=== PATIENT | female | born 1995 | race Caucasian/White ===

== ENCOUNTER 2019-10-22 15:39 | Emergency (ER) | payer OTHER, SELFPAY ==
[2019-10-22 16:02] VITALS: BP 111/66; PULSE 97; RESP 16; TEMP 36.6; O2SAT 98
--- NOTE | 2019-10-22 16:41 | ED.GENADULT ---
HPI - General Adult General Chief complaint: Headache Stated complaint: headache/nausea Time Seen by Provider: 10/22/19 16:41 Source: patient and RN notes reviewed Mode of arrival: ambulatory Limitations: no limitations History of Present Illness HPI narrative: 23-year-old female complains of headache with aura of nausea and intermittent dizziness (none at this time) for 1 day. Tylenol with no relief. No neck stiffness. No fever or chills. No URI symptoms. Gradual onset started Wednesday10/21/19 upon awakening per Rosa. Not the Worst headache of her life. No head injury. Feels like almost a similar episode she had previously but not as bad per Rosa. Previous episode treated in the emergency room with medications and intravenous fluids. Denies vision change, confusion, or seizure activity. Rosa denies being , LMP 10/05/19. Remains active. Denies weakness, fatigue, myalgia, or facial swelling. Denies chest pain or dyspnea. Denies cough, rhinorrhea, congestion, sore throat, nausea, vomiting, abdominal pain, and diarrhea. Tolerating po intake well. Denies recent traveling. Denies concerns for COVID-19 or exposures been home since [id number] order except for essential household needs, working, and return home. Some parts of this dictation were generated by voice recognition software and may contain typographical and/or grammatical inaccuracies. Related Data Allergies Allergy/AdvReac Type Severity Reaction Status Date / Time codeine Allergy Mild Vomiting Unverified 11/03/15 09:30 Wasp Allergy Unknown Uncoded 11/03/15 09:30 Review of Systems Review of Systems: Narrative: CONSTITUTIONAL: Denies fever, chills, sweats. EYES: Denies visual changes, redness, discharge. ENT: Denies rhinorrhea, congestion, sore throat, otalgia. CARDIOVASCULAR: Denies chest pain, palpitations, edema. RESPIRATORY: Denies dyspnea, wheezing, cough. GASTROINTESTINAL: Denies abdominal pain, vomiting or diarrhea. Complains of nausea. GENITOURINARY: Denies dysuria, hematuria, abnormal discharge. SKIN: Denies rash or itching. MUSCULOSKELETAL: Denies acute back pain, joint pain, or myalgia. NEUROLOGIC: Denies numbness, or focal weakness. Complaints of headache and intermittent dizziness. PSYCHIATRIC: Denies anxiety or depression. All systems reviewed & are unremarkable except as noted in HPI and below. [facility] Past Medical History Medical History (Updated 10/23/19 @ 00:00 by Steve Avalos) Asthma Depression with anxiety No pertinent family history Wrist fracture, left Surgical History Surgical History (Updated 10/22/19 @ 17:18 by ELISABET Diamond) History of surgery on left wrist Family History Family History (Updated 10/22/19 @ 17:19 by ELISABET Diamond) Father Alive and well Mother Alive and well Social History Social History (Updated 10/22/19 @ 17:20 by ELISABET Diamond) Smoking status: Never smoker Second hand tobacco smoke exposure: No Alcohol intake: current Substance use: never Living arrangements: with family Occupation/Education: occupation Gender identity (if verbalized by the patient): Female Comments At time of signature, agree with nurse past medical, surgical, social, and family history. There is no relevant family history pertinent to the presenting complaint. Exam Narrative: Exam Narrative: GENERAL: This is a well-nourished, well-developed patient, in no apparent distress. Talks in full sentences, no language deficiencies and ambulates with steady gait without dyspnea. HEAD: normocephalic, atraumatic. EYES: PERRL. Sclera clear/white. Vision is grossly intact. EOMI, no nystagmus noted. EARS: External ears normal, auditory canals clear and without drainage, TMs normal without perforation. Hearing grossly intact. NOSE: External nose normal with no obvious nasal discharge, nares without redness, no rhinorrhea. THROAT: Mucous membranes moist, posterior pharynx
== END 2019-10-22 17:00 | disposition home or self-care (01) ==
PROVIDERS: Emergency Provider Nurse Practitioner Family; PCP Family Medicine
DX: R51 Headache (principal); J45.909 Unspecified asthma, uncomplicated
CPT/HCPCS: 99213; G0463

== ENCOUNTER 2020-03-05 09:34 | Outpatient (CLI) | payer OTHER, SELFPAY ==
--- NOTE | ~2020-03-05 | US_ITS ---
EXAMINATION: US OB <=14 wk fetus w TV DATE: 03/05/2020 10:29 INDICATION: Pelvic pain. Comparison:No prior studies for comparison. TECHNIQUE: Multiple transabdominal and endovaginal sonographic images of the pelvis performed. FINDINGS: The uterus measures 8.5 x 6.9 x 5.1 cm. The endometrial complex measures 1.4 cm. No evidenc e for intrauterine gestational sac or pole. The right ovary measures 1.9 x 2.6 x 2.1 cm and the left ovary measures 3 x 2 x 1.8 cm. There are sm all follicles in each ovary. There is trace free fluid in the pelvis. There are no abnormal masses seen on either side. IMPRESSION: 1. Mild endometrial thickening. No intrauterine gestational sac or pole. Differential diagnosis includes very early intrauterine , failed and ectopic . Recommend follow -up with serial quantitative beta-hCG levels and ultrasound as clinically warranted. Reviewed, dictated and finalized at location B. IMPRESSION: 1. Mild endometrial thickening. No intrauterine gestational sac or pole. Differential diagnosis includes very early intrauterine , failed pregn margot and ectopic . Recommend follow-up with serial quantitative beta-h CG levels and ultrasound as clinically warranted.
== END 2020-03-05 09:35 | disposition home or self-care (01) ==
LOC: ANHIMG 09:42
PROVIDERS: PCP Family Medicine; Visit Provider Obstetrics & Gynecology
DX: O75.89 Other specified complications of labor and delivery (principal)
CPT/HCPCS: 76801; 76817

== ENCOUNTER 2020-04-24 12:59 | Emergency (ER) | payer OTHER, SELFPAY ==
--- NOTE | ~2020-04-24 | XR_ITS ---
EXAMINATION: XR foot LT min 3V DATE: 04/24/2020 13:29 INDICATION: Pain at the left first metatarsal post trauma TECHNIQUE: Dorsoplantar, two oblique and lateral views of the left foot were obtained. COMPARISON: None. FINDINGS: Alignment is normal. No fracture. Joint spaces are normal. Soft tissues are unremarkable. IMPRESSION: 1. Negative left foot radiographs. Reviewed, dictated and finalized at location A. 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
--- NOTE | 2020-04-24 13:08 | ED.GENADULT ---
HPI - General Adult General Chief complaint: Extremity Injury, Lower Stated complaint: L/foot pain Time Seen by Provider: 04/24/20 13:08 Source: patient and RN notes reviewed Mode of arrival: ambulatory Limitations: no limitations History of Present Illness HPI narrative: 24-year-old female presents with complaints of left foot pain for the past 3 weeks. Rosa says 3 weeks ago she ran a uniform cart over the top of left foot at work. Then last night while going down the steps she lost her balance left foot went upward and now has increased pain at bottom of foot. Tylenol 2 tablets (last on 04/23/20 @22:30) without relief. Hurts to bear weight. No radiation of pain. No swelling, numbness, tingling, or loss of mobility. Exacerbating factor applying weight. Denies inability to bear weight. Denies discoloration. Denies suspect foreign body. Denies fever or chills. The patient reports she have not been diagnosed with COVID-19. The patient reports she is not waiting for the results of a COVID-19 lab test. The patient reports she do not have fever, chills, weakness, or fatigue. The patient reports she do not have a new or worsening cough or shortness of breath. Denies chest pain. The patient reports she do not have any rhinorrhea, congestion, sore throat, loss of taste, nausea, vomiting, abdominal pain, and diarrhea. Tolerating po intake well. Denies recent traveling. Denies concerns for COVID-19 or exposures been home with limited outdoor exposure except for essential household needs, work, and return home. At this time, patient is not suspected of having COVID-19. Some parts of this dictation were generated by voice recognition software and may contain typographical and/or grammatical inaccuracies. Related Data Home Medications Medication Instructions Recorded Confirmed phentermine 15 mg PO DAILY 04/26/20 04/26/20 sertraline 50 mg PO DAILY 04/26/20 04/26/20 Allergies Allergy/AdvReac Type Severity Reaction Status Date / Time codeine Allergy Mild Vomiting Verified 04/26/20 13:14 Wasp Allergy Unknown Swelling Uncoded 04/24/20 13:02 Review of Systems Review of Systems: Narrative: CONSTITUTIONAL: Denies fever, chills, sweats. EYES: Denies visual changes, redness, discharge. ENT: Denies rhinorrhea, congestion, sore throat, otalgia. CARDIOVASCULAR: Denies chest pain, palpitations, edema. RESPIRATORY: Denies dyspnea, wheezing, cough. GASTROINTESTINAL: Denies abdominal pain, nausea, vomiting, diarrhea. SKIN: Denies rash or itching. MUSCULOSKELETAL: Denies acute back pain or myalgia. Complains of to left foot. NEUROLOGIC: Denies numbness or focal weakness. PSYCHIATRIC: Denies anxiety or depression. All other systems reviewed are negative, except as documented in HPI and below. [facility] Past Medical History Medical History Asthma Depression with anxiety No pertinent family history Wrist fracture, left Surgical History Surgical History History of surgery on left wrist Family History Family History Father Alive and well Mother Alive and well Social History Social History Smoking status: Never smoker Tobacco type: cigarettes Second hand tobacco smoke exposure: No Alcohol intake: current Substance use: never Gender identity (if verbalized by the patient): Female Comments At time of signature, agree with nurse past medical, surgical, social, and family history. There is no relevant family history pertinent to the presenting complaint. Exam Narrative: Exam Narrative: GENERAL: This is a well-nourished, well-developed patient, in no apparent distress. Ambulates with a limp favoring left lower extremity. HEAD: normocephalic, atraumatic. EYES: PERRL. Sclera clear/white.
[2020-04-24 13:09] VITALS: BP 145/85; PULSE 90; RESP 20; TEMP 36.9; O2SAT 100
== END 2020-04-24 13:44 | disposition home or self-care (01) ==
PROVIDERS: Emergency Provider Nurse Practitioner Family; PCP Family Medicine
DX: S93.602A Unspecified sprain of left foot, initial encounter (principal); W10.9XXA Fall (on) (from) unspecified stairs and steps, initial encounter; S90.32XA Contusion of left foot, initial encounter; J45.909 Unspecified asthma, uncomplicated; F41.9 Anxiety disorder, unspecified; F32.9 Major depressive disorder, single episode, unspecified
CPT/HCPCS: 73630; 81025; 99213; G0463

== ENCOUNTER 2020-04-26 13:00 | Emergency (ER) | payer OTHER, SELFPAY ==
--- NOTE | ~2020-04-26 | XR_ITS ---
EXAMINATION: XR foot LT min 3V DATE: 04/26/2020 13:27 INDICATION: Trauma with pain at the left first metatarsal TECHNIQUE: Dorsoplantar, two oblique and lateral views of the left foot were obtained. COMPARISON: 04/24/2020 FINDINGS: Alignment is normal. No fracture. Joint spaces are normal. Soft tissues are unremarkable. IMPRESSION: 1. Negative left foot radiographs. Reviewed, dictated and finalized at location A. [employer] ADVANCED
[2020-04-26 13:11] VITALS: BP 134/95; PULSE 81; RESP 16; TEMP 36.8; O2SAT 100
--- NOTE | 2020-04-26 13:11 | ED.GENADULT ---
HPI - General Adult General Chief complaint: Extremity Injury, Lower Stated complaint: left foot injury Time Seen by Provider: 04/26/20 13:17 Source: patient and RN notes reviewed Limitations: no limitations History of Present Illness HPI narrative: 24-year-old female presents with complaints of left foot pain and swelling for 1 day. Rosa was here on April 24, 2020 and treated for left foot pain due to several injuries (cart rolled over foot and missed a stepped while going down stairs), had a negative x-ray. Walking in kitchen (tennis shoes on) felt a pop and noted swelling in her left foot on 04/25/2020. Tylenol extra strength (last 08:30 AM today) without relief. Hurts to bear weight. No radiation of pain. No numbness, tingling, or loss of mobility. Exacerbating factor applying weight. Denies inability to bear weight. Denies discoloration. Denies suspect foreign body. The patient reports she have not been diagnosed with COVID-19. The patient reports she is not waiting for the results of a COVID-19 lab test. The patient reports she do not have fever, chills, weakness, or fatigue. The patient reports she do not have a new or worsening cough or shortness of breath. Denies chest pain. The patient reports she do not have any rhinorrhea, congestion, sore throat, loss of taste, nausea, vomiting, abdominal pain, and diarrhea. Tolerating po intake well. Denies recent traveling. Denies concerns for COVID-19 or exposures been home with limited outdoor exposure except for essential household needs, work, and return home. At this time, patient is not suspected of having COVID-19. Some parts of this dictation were generated by voice recognition software and may contain typographical and/or grammatical inaccuracies. Related Data Home Medications Medication Instructions Recorded Confirmed phentermine 15 mg PO DAILY 04/26/20 04/26/20 sertraline 50 mg PO DAILY 04/26/20 04/26/20 Allergies Allergy/AdvReac Type Severity Reaction Status Date / Time codeine Allergy Mild Vomiting Verified 04/26/20 13:14 Wasp Allergy Unknown Swelling Uncoded 04/24/20 13:02 Review of Systems Review of Systems: Narrative: CONSTITUTIONAL: Denies fever, chills, sweats. EYES: Denies visual changes, redness, discharge. ENT: Denies rhinorrhea, congestion, sore throat, otalgia. CARDIOVASCULAR: Denies chest pain, palpitations, edema. RESPIRATORY: Denies dyspnea, wheezing, cough. GASTROINTESTINAL: Denies abdominal pain, nausea, vomiting, diarrhea. SKIN: Denies rash or itching. MUSCULOSKELETAL: Denies acute back pain or myalgia. Complains of pain and swelling to left foot. NEUROLOGIC: Denies numbness or focal weakness. PSYCHIATRIC: Denies anxiety or depression. All other systems reviewed are negative, except as documented in HPI and below. [facility] Past Medical History Medical History Asthma Depression with anxiety No pertinent family history Wrist fracture, left Surgical History Surgical History History of surgery on left wrist Family History Family History Father Alive and well Mother Alive and well Social History Social History Smoking status: Never smoker Tobacco type: cigarettes Second hand tobacco smoke exposure: No Alcohol intake: current Substance use: never Gender identity (if verbalized by the patient): Female Comments At time of signature, agree with nurse past medical, surgical, social, and family history. There is no relevant family history pertinent to the presenting complaint. Exam Narrative: Exam Narrative: GENERAL: This is a well-nourished, well-developed patient, in no apparent distress. Talks in full sentences and ambulates with LT antalgic gait without dyspnea. HEAD: normoceph
== END 2020-04-26 13:49 | disposition home or self-care (01) ==
PROVIDERS: Emergency Provider Nurse Practitioner Family; PCP Family Medicine
DX: S93.602D Unspecified sprain of left foot, subsequent encounter (principal); X58.XXXD Exposure to other specified factors, subsequent encounter; J45.909 Unspecified asthma, uncomplicated; F32.9 Major depressive disorder, single episode, unspecified; F41.9 Anxiety disorder, unspecified
CPT/HCPCS: 73630; 99213; G0463

== ENCOUNTER 2020-07-01 10:08 | Emergency (ER) | payer OTHER, MEDICAID, SELFPAY ==
--- NOTE | ~2020-07-01 | XR_ITS ---
EXAMINATION: XR abdomen/kub 1V EXAM DATE: 07/01/2020 10:48 INDICATION: Change in bowel habits/pain right lower quadrant. TECHNIQUE: Frontal projection(s) of the abdomen for interpretation. There is no prior study for cirilo villavicencio. FINDINGS: There is expected amount of colonic stool and gas. No small bowel dilation, nonobstructiv e bowel gas pattern. There are no suspicious calcifications identified. There is no organomegaly suspected. The bones are unremarkable. IMPRESSION: Unremarkable abdomen x-ray exam. Reviewed, dictated and finalized at location B. EHOLD MANAGER
[2020-07-01 10:20] VITALS: BP 135/94; PULSE 81; RESP 18; TEMP 36.7; O2SAT 100
--- NOTE | 2020-07-01 10:20 | ED.ABDPAIN ---
HPI - Abdominal Pain General Chief Complaint: Abdominal Pain Stated Complaint: stomach pain Time Seen by Provider: 07/01/20 10:25 Source: patient and RN notes reviewed Mode of arrival: ambulatory Limitations: no limitations History of Present Illness HPI narrative: 24-year-old female presents with concern for umbilical abdominal discomfort, more frequent stools, change in the shape of her stools. Reports at baseline she has slight constipation, has a bowel movement every 3 days approximately. Reports in the last week she is having more frequent, solid bowel movements, urgent need to have a bowel movement. She denies any pain with defecation, any blood in her stool or when wiping. She denies any vomiting, diarrhea, fever. Reports mild amount of anal itching today. Reports her last menstrual period ended on June 25. Reports 2 vaginal births, the last one was 3 years ago, denies any hemorrhoids with those births. MD elicited complaint: other (Change in bowel habits) Related Data Home Medications Medication Instructions Recorded Confirmed No Home Medications 07/01/20 07/01/20 Allergies Allergy/AdvReac Type Severity Reaction Status Date / Time codeine Allergy Unknown Verified 07/01/20 10:27 Review of Systems Review of Systems: Narrative: CONSTITUTIONAL: Denies malaise, chills, sweats, or fever. CARDIOVASCULAR: Denies chest pain, palpitations, or edema. RESPIRATORY: Denies cough or dyspnea. GASTROINTESTINAL: Reports umbilical abdominal discomfort, change in bowel habits, more frequent stools, change in shape of stools. Denies nausea, vomiting, diarrhea, bloody, or mucous stools. GENITOURINARY: Denies dysuria or hematuria. SKIN: Reports anal itching MUSCULOSKELETAL: Reports mild low back pain. Denies myalgia. NEUROLOGIC: Denies numbness, weakness All systems reviewed & are unremarkable except as noted in HPI and below PMFSH Social History Social History Gender identity (if verbalized by the patient): Female Comments At time of signature, agree with nursing past medical, surgical, social and family history. There is no relevant family history pertinent to the presenting complaint Exam Narrative: Exam Narrative: GENERAL: Well-appearing, well-nourished, and in no acute distress. HEAD: Normocephalic, atraumatic. EYES: PERRLA, conjunctivae clear ENT: Mucous membranes moist. NECK: Supple. No lymphadenopathy CHEST: Speaks in full sentences. No respiratory distress. HEART: Regular rate and rhythm. ABDOMEN: Soft, flat, nondistended. No guarding, rebound tenderness, or rigid. No pulsatilla masses. Bowel sounds present in all four quadrants. No organomegaly. Negative Mckenzie?s sign. Mild periumbilical tenderness to deep palpation. No Supra public tenderness or distension. SKIN: Warm, dry, no rash. NEURO: Alert and oriented x3. PSYCH: Normal mood and affect GI: Rectal Exam: visual inspection normal and normal sphincter tone Other: no visible or palpable internal or external hemorrhoids Course Course Emergency Course: Patient is aware of, understands and agrees to treatment plan. Anticipatory guidance given. Patient agrees to follow-up as directed and is aware of reasons to seek care at the emergency department. Portions of this record may have been created with voice recognition software Vital Signs Vital signs: Reviewed. MDM - Abdominal Pain MDM Narrative Medical decision making narrative: Discussed limited diagnostic capability at the [facility]. Patient understands, reports she will make an appointment with her primary care doctor for further evaluation, understands reasons to go to the emergency room. Patient has no history of peptic ulcer, H. pylori, chronic aspirin NSAID or corticosteroid use, chronic alcohol use, no history of inflammatory bowel disease, no history of active abdominal infection or malignancy. Patient has no history of hernia or intra-abdominal surgeries, patient denies absence of flatu
== END 2020-07-01 11:10 | disposition home or self-care (01) ==
PROVIDERS: Emergency Provider Nurse Practitioner; PCP Family Medicine
DX: R19.4 Change in bowel habit (principal)
CPT/HCPCS: 74018; 99203; G0463

== ENCOUNTER → 2020-08-15 14:37 | Outpatient (CLI) | payer OTHER, SELFPAY ==
--- NOTE | ~2020-08-15 | CT_ITS ---
EXAMINATION: CT brain wo con DATE: 08/15/2020 15:01 INDICATION: Concussion. Headaches. Dizziness. TECHNIQUE: Computed tomography (CT) of the head was performed without intravenous contrast. The mA wa s adjusted according to patient size. Iterative reconstruction technique was employed. Exam dose: 59 9.57 mGy-cm total exam DLP. COMPARISON: None FINDINGS: No intracranial mass lesion or hemorrhage or cerebrovascular accident. No midline shift or mass effect. Normal ventricular size. Normal richardson-white matter differentiation. No subdural or epidur al hematoma. No fracture or bone destruction of the cranial vault The mastoid air cells and included paranasal sinuses are normally developed and aerated. No fracture or bone destruction of the cranial vault. IMPRESSION: Negative Reviewed, dictated and finalized at Location A. Reviewed, dictated and finalized at location A. 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
== END ==
PROVIDERS: Visit Provider Registered Nurse
DX: S06.0X0A Concussion without loss of consciousness, initial encounter (principal)
CPT/HCPCS: 70450

== ENCOUNTER 2020-08-28 06:45 | Emergency (ER) | payer OTHER, MEDICAID, SELFPAY ==
--- NOTE | ~2020-08-28 | XR_ITS ---
EXAMINATION: XR hand RT min 3V INDICATION: Right hand pain TECHNIQUE: Three views of the right hand are obtained. COMPARISON: None available FINDINGS: There is no fracture, dislocation, or subluxation. The bones and joint spaces are normal. T here is mild soft tissue swelling of the fifth finger. IMPRESSION: 1. No acute osseous abnormality. Reviewed, dictated and finalized at location A. 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
[2020-08-28 06:49] VITALS: BP 141/82; PULSE 87; RESP 16; TEMP 36.3; O2SAT 100
--- NOTE | 2020-08-28 07:41 | ED.GENADULT ---
HPI - General Adult General Chief complaint: Extremity Injury, Upper Stated complaint: right hand injury Time Seen by Provider: 08/28/20 06:54 History of Present Illness HPI narrative: Patient is a 24-year-old female who presents ER with right hand injury. Patient tripped and fell on outstretched hand this morning. She caught herself on the right side. She had sudden onset pain in her wrist near the base of the fifth metacarpal. About 30 minutes later she began having some numbness into her hand. She has discomfort when touching her fifth digit to her first digit. She maintains range of motion in the wrist and hand. Patient reports she was trying to wipe herself after using the restroom and caused significant pain for her. Related Data Allergies Allergy/AdvReac Type Severity Reaction Status Date / Time codeine Allergy Unknown Verified 07/01/20 10:27 Review of Systems Musculoskeletal: Musculoskeletal: Reports arthralgias, Denies joint swelling and Denies muscle cramps Integumentary/Breasts: Skin/Breast: Denies erythema and Denies rash Comments: No bruising Neurologic: Denies focal weakness and Reports numbness PMFSH Past Medical History Medical History (Updated 08/28/20 @ 07:45 by Demarco Merlos MD) Healthy female adult Surgical History Surgical History (Updated 08/28/20 @ 07:42 by Demarco Merlos MD) No pertinent past surgical history Social History Social History Gender identity (if verbalized by the patient): Female Exam Narrative: Exam Narrative: GENERAL: Well-appearing, well-nourished, and in no acute distress. HEAD: Normocephalic, atraumatic. EXTREMITIES: Focused exam of the right upper extremity reveals full range of motion elbow and wrist and fingers with normal strength. Tender to palpation over the dorsal aspect of the hand/wrist at the base of the fifth metacarpal. No swelling or bruising noted. Decreased sharp touch to the palmar and dorsal aspects of the hand. SKIN: Warm, dry, no rash. NEURO: Alert and oriented x3. PSYCH: Normal mood and affect. Course Course Emergency Course: Patient informed of x-ray results. Recommend wrist splint that can be purchased at [employer] for immobilization as well as anti-inflammatory medications. Feel patient has suffered a wrist sprain and swelling could be causing some paresthesia/anesthesia. Recommend follow-up with PCP as she may require MRI should symptoms persist. Patient verbalized understanding. Discharge home. Vital Signs Vital signs: Vital Signs Temperature 97.3 F L 08/28/20 06:49 Pulse Rate 87 08/28/20 06:49 Respiratory Rate 16 08/28/20 06:49 Blood Pressure 141/82 H 08/28/20 06:49 Pulse Oximetry 100 08/28/20 06:49 Temperature 97.3 F L 08/28/20 06:49 Pulse Rate 87 08/28/20 06:49 Respiratory Rate 16 08/28/20 06:49 Blood Pressure 141/82 H 08/28/20 06:49 Pulse Oximetry 100 08/28/20 06:49 Medical Decision Making Vital Signs Vital Signs: Vital Signs Temperature 97.3 F L 08/28/20 06:49 Pulse Rate 87 08/28/20 06:49 Respiratory Rate 16 08/28/20 06:49 Blood Pressure 141/82 H 08/28/20 06:49 Pulse Oximetry 100 08/28/20 06:49 Temperature 97.3 F L 08/28/20 06:49 Pulse Rate 87 08/28/20 06:49 Respiratory Rate 16 08/28/20 06:49 Blood Pressure 141/82 H 08/28/20 06:49 Pulse Oximetry 100 08/28/20 06:49 Imaging Data Radiologist's impression: ITS Impressions Hand X-Ray 08/28/20 07:09 IMPRESSION: 1. No acute osseous abnormality. Discharge Plan Discharge Clinical Impression: Sprain and strain of wrist Patient Disposition: Home, Self-Care Condition: Stable Instructions: Wrist Sprain (ED) Additional Instructions: Return to the ER if you suffer additional injury, you have new weakness in your hand, or you have additional concerns. If your numbness persist you may require an MRI that can be ordered by your primary care physician. Nicholas
== END 2020-08-28 08:00 | disposition home or self-care (01) ==
PROVIDERS: Emergency Provider Emergency Medicine; PCP Family Medicine
DX: S63.501A Unspecified sprain of right wrist, initial encounter (principal); W01.0XXA Fall on same level from slipping, tripping and stumbling without subsequent striking against object, initial encounter
CPT/HCPCS: 73130; 99283

== ENCOUNTER 2021-01-08 08:53 | Observation (INO) | payer OTHER, SELFPAY ==
[2021-01-08 09:44] LABS: Add Urine Microscopic? YES; Appearance Urine Cloudy (Clear); Bacteria Urine Trace /hpf; Bilirubin Urine Negative (Negative); Blood Urine 1+ (Negative); Color Urine Yellow (Yellow); Glucose Urine UA Negative (Negative); Ketones Urine Negative (Negative); Leukocyte Esterase Ur 3+ LEU/UL (Negative); Mucus Urine Rare /lpf; Nitrate Urine Negative (Negative); Protein Urine Negative (Negative); RBC Urine 21-50 /hpf (0-2); Squamous Epithelial Cell Urine Many /hpf (Few); Urobilinogen Urine Negative mg/dL (<2.0); WBC Urine 31-50 /hpf
[2021-01-08 09:49] LABS: Specific Grav Ur 1.004 (1.001-1.035)
--- NOTE | 2021-01-08 10:31 | PC.NURSE ---
1020- called,read UA results and informed pt came in stating she has had diarrhea since Wednesday and had a couple episodes of vomiting on Wednesday that has resolved. Pt states she had some mild lower abdominal cramping last night and felt weak today so she came in to get evaluated. Orders received for LR bolus of 500cc then run at 125/hr, if pt feels better after the liter of fluid she can be discharged home.
--- NOTE | 2021-01-08 10:46 | PC.NURSE ---
1041- called back, pt does not want an IV and states she wants to go to work and will sit at her desk and drink water to stay hydrated. Order received to discharge pt home.
--- NOTE | 2021-01-08 10:48 | OBADM ---
This patient, Rosa Acuna, admitted to the OB room OB Post 117 for observation. Patient/family oriented to hospital policies and general routines including ID bracelet, bed and alarms, visiting hours, pain management, procedures, bathroom and other care routines, personal items, smoking policy, room service/diet, and visiting hours. Patient/Family are encouraged to report perceived risks to care and to ask questions if they do not understand what they are told or what they should do.
[2021-01-08 11:18] VITALS: BMI 31.1
--- NOTE | 2021-01-09 10:40 | P.PNOB_ITS ---
OB - Triage/Final Diagnosis Visit Information Comments/Additional reasons for admission: I have assessed the risk for this patient, Rosa Acuna, and determined that she would benefit from observation care. Evaluation Laboratory results: Laboratory Tests 01/08/21 09:23 Urine Color Yellow Urine Appearance Cloudy H Urine pH 7.0 Ur Specific [place] 1.004 Urine Protein Negative Urine Glucose (UA) Negative Urine Ketones Negative Ur Blood (Man) 1+ H Urine Nitrate Negative Urine Bilirubin Negative Urine Urobilinogen Negative Leukocyte Esterase Rfl 3+ H Urine RBC 21-50 H Urine WBC 31-50 H Ur Squamous Epith Cells Many H Urine Bacteria Trace Urine Mucus Rare Final Diagnosis (1) Gastroenteritis: Code(s): K52.9 - Noninfective gastroenteritis and colitis, unspecified Status: Acute
== END 2021-01-08 10:55 | disposition home or self-care (01) ==
PROVIDERS: Admitting Provider Obstetrics & Gynecology; PCP Family Medicine; Visit Provider Obstetrics & Gynecology
DX: O26.892 Other specified pregnancy related conditions, second trimester (principal); K52.9 Noninfective gastroenteritis and colitis, unspecified; Z3A.00 Weeks of gestation of pregnancy not specified
CPT/HCPCS: 81001; 87086; G0378; G0379

== ENCOUNTER 2021-01-28 09:45 | Observation (INO) | payer OTHER, SELFPAY ==
--- NOTE | 2021-01-28 09:45 | OBADM ---
This patient, Rosa Acuna, admitted to the OB room OB Post 115 for observation. Patient/family oriented to hospital policies and general routines including ID bracelet, bed and alarms, visiting hours, pain management, procedures, bathroom and other care routines, personal items, smoking policy, room service/diet, and visiting hours. Patient/Family are encouraged to report perceived risks to care and to ask questions if they do not understand what they are told or what they should do.
[2021-01-28 10:08] VITALS: BP 124/74; PULSE 95
[2021-01-28 10:10] VITALS: BMI 31.8
[2021-01-28 10:16] VITALS: BP 123/74; PULSE 96
[2021-01-28 10:36] LABS: Add Urine Microscopic? NO; Appearance Urine Clear (Clear); Bilirubin Urine Negative (Negative); Blood Urine Negative (Negative); Color Urine Straw (Yellow); Glucose Urine UA Negative (Negative); Ketones Urine Negative (Negative); Leukocyte Esterase Ur Negative LEU/UL (NEGATIVE); Nitrate Urine Negative (Negative); Protein Urine Negative (Negative); Specific Grav Ur 1.009 (1.001-1.035); Urobilinogen Urine Negative mg/dL (<2.0)
[2021-01-28 11:00] VITALS: TEMP 36.2
--- NOTE | 2021-02-06 13:57 | P.PNOB_ITS ---
OB - Triage/Final Diagnosis Visit Information Reason for evaluation: threatened labor Comments/Additional reasons for admission: I have assessed the risk for this patient, Rosa Acuna, and determined that she would benefit from observation care. Evaluation Laboratory results: Laboratory Tests 01/28/21 10:25 Urine Color Straw Urine Appearance Clear Urine pH 7.0 Ur Specific [place] 1.009 Urine Protein Negative Urine Glucose (UA) Negative Urine Ketones Negative Ur Blood (Man) Negative Urine Nitrate Negative Urine Bilirubin Negative Urine Urobilinogen Negative Ur Leukocyte Esterase Negative
== END 2021-01-28 11:52 | disposition home or self-care (01) ==
PROVIDERS: Admitting Provider Obstetrics & Gynecology; PCP Family Medicine; Visit Provider Obstetrics & Gynecology
DX: O47.9 False labor, unspecified (principal); Z3A.00 Weeks of gestation of pregnancy not specified
CPT/HCPCS: 81003; 87077; 87086; 87088; G0378; G0379

== ENCOUNTER 2021-04-03 13:10 | Observation (INO) | payer OTHER, SELFPAY ==
--- NOTE | 2021-04-03 13:35 | OBADM ---
This patient, Rosa Shin, admitted to the OB room OB Post 117 for observation. Patient/family oriented to hospital policies and general routines including ID bracelet, bed and alarms, visiting hours, pain management, procedures, bathroom and other care routines, personal items, smoking policy, room service/diet, and visiting hours. Patient/Family are encouraged to report perceived risks to care and to ask questions if they do not understand what they are told or what they should do.
[2021-04-03 13:46] VITALS: BP 121/79; PULSE 93
[2021-04-03 14:01] VITALS: BP 115/79; PULSE 87
[2021-04-03 14:06] LABS: Add Urine Microscopic? YES; Appearance Urine Clear (Clear); Bilirubin Urine Negative (Negative); Blood Urine Negative (Negative); Color Urine Yellow (Yellow); Glucose Urine UA Negative (Negative); Ketones Urine Negative (Negative); Leukocyte Esterase Ur Trace LEU/UL (NEGATIVE); Nitrate Urine Negative (Negative); Protein Urine Negative (Negative); RBC Urine 0-2 /hpf (0-2); Specific Grav Ur 1.012 (1.001-1.035); Squamous Epithelial Cell Urine Occasional /hpf (Few); Urobilinogen Urine Negative mg/dL (<2.0); WBC Urine 0-3 /hpf (0-3)
[2021-04-03 14:16] VITALS: BP 116/75; PULSE 87
[2021-04-03 14:31] VITALS: BP 112/72; PULSE 90
[2021-04-03 14:46] VITALS: BP 125/79; PULSE 96
[2021-04-03 15:01] VITALS: BP 119/75; PULSE 87
--- NOTE | 2021-04-04 06:59 | P.PNOB_ITS ---
OB - Triage/Final Diagnosis Visit Information Comments/Additional reasons for admission: I have assessed the risk for this patient, Rosa Shin, and determined that she would benefit from observation care. Evaluation Laboratory results: Laboratory Tests 04/03/21 13:47 Urine Color Yellow Urine Appearance Clear Urine pH 7.0 Ur Specific [place] 1.012 Urine Protein Negative Urine Glucose (UA) Negative Urine Ketones Negative Ur Blood (Man) Negative Urine Nitrate Negative Urine Bilirubin Negative Urine Urobilinogen Negative Ur Leukocyte Esterase Trace H Urine RBC 0-2 Urine WBC 0-3 Ur Squamous Epith Cells Occasional Final Diagnosis (1) Back pain affecting : Code(s): O99.891 - Other specified diseases and conditions complicating ; M54.9 - Dorsalgia, unspecified Status: Acute
== END 2021-04-03 15:14 | disposition home or self-care (01) ==
PROVIDERS: Admitting Provider Obstetrics & Gynecology; PCP Family Medicine; Visit Provider Obstetrics & Gynecology
DX: O99.891 Other specified diseases and conditions complicating pregnancy (principal); M54.9 Dorsalgia, unspecified; Z3A.33 33 weeks gestation of pregnancy
CPT/HCPCS: 81001; 87086; G0378; G0379

== ENCOUNTER 2021-04-17 12:41 | Observation (INO) | payer OTHER, SELFPAY ==
[2021-04-17] VITALS (18 sets, daily range): BP systolic 130–137; BP diastolic 82–85; PULSE 89–108; O2SAT 100
--- NOTE | 2021-04-17 14:26 | PC.NURSE ---
Discussed risk and benefits of receiving terbutaline SQ. Pt is declining at this time and wants to talk with her sister.
--- NOTE | 2021-04-17 14:32 | OBADM ---
This patient, Rosa Shin, admitted to the OB room OB Post 113 for observation. Patient oriented to hospital policies and general routines including ID bracelet, bed and alarms, visiting hours, pain management, procedures, bathroom and other care routines, personal items, smoking policy, room service/diet, call light and visiting hours. Patient is encouraged to report perceived risks to care and to ask questions if she does not understand what she is told or what she should do.
--- NOTE | 2021-04-17 14:47 | PC.NURSE ---
Pt refuses terbutaline after discussing with her sister.
--- NOTE | 2021-04-19 07:06 | PM.OBTRLD ---
OB - Triage/Final Diagnosis Visit Information Reason for evaluation: threatened labor Comments/Additional reasons for admission: I have assessed the risk for this patient, Rosa Shin, and determined that she would benefit from observation care.
== END 2021-04-17 15:25 | disposition home or self-care (01) ==
PROVIDERS: Admitting Provider Obstetrics & Gynecology; PCP Family Medicine; Visit Provider Obstetrics & Gynecology
DX: O47.03 False labor before 37 completed weeks of gestation, third trimester (principal); Z3A.35 35 weeks gestation of pregnancy
CPT/HCPCS: 84112; 96372; G0378; G0379

== ENCOUNTER 2021-04-21 14:26 | Observation (INO) | payer OTHER, SELFPAY ==
[2021-04-21 15:30] VITALS: BP 122/79; PULSE 100
[2021-04-21 15:45] VITALS: BP 122/77; PULSE 97
[2021-04-21 16:00] VITALS: BP 124/74; PULSE 96
[2021-04-21 16:15] VITALS: BP 122/76; PULSE 100
[2021-04-21 16:30] VITALS: BP 128/79; PULSE 92
[2021-04-21 17:29] VITALS: BMI 32.2
== END 2021-04-21 17:05 | disposition home or self-care (01) ==
PROVIDERS: Admitting Provider Obstetrics & Gynecology; PCP Family Medicine; Visit Provider Obstetrics & Gynecology
DX: O47.03 False labor before 37 completed weeks of gestation, third trimester (principal); Z3A.35 35 weeks gestation of pregnancy
CPT/HCPCS: 84112; G0378; G0379

== ENCOUNTER 2021-04-25 14:48 | Observation (INO) | payer OTHER, SELFPAY ==
--- NOTE | 2021-04-25 14:48 | OBADM ---
This patient, Rosa Shin, admitted to the OB room Labor/Delivery/Recovery 106 for observation. Patient/family oriented to hospital policies and general routines including ID bracelet, bed and alarms, visiting hours, pain management, procedures, bathroom and other care routines, personal items, smoking policy, room service/diet, and visiting hours. Patient/Family are encouraged to report perceived risks to care and to ask questions if they do not understand what they are told or what they should do.
[2021-04-25 15:15] VITALS: BMI 32.5
[2021-04-25 15:30] VITALS: BP 135/90; PULSE 96
[2021-04-25 15:31] VITALS: BP 137/96; PULSE 98
[2021-04-25 15:43] LABS: Basophils Percent Auto 0.1 % (0.2-1.2); Eosinophils Percent Auto 0.3 % (0-4.4); Hematocrit 34.6 % (37.0-47.0); Hemoglobin 10.9 g/dL (12.0-15.0); Immature Granulocyte Absolute 0.01 K/mm3 (0.00-0.031); Immature Granulocyte Percent A 0.1 % (0-0.5); Lymphocytes Absolute Auto 1.97 K/mm3 (0.9-3.2); Lymphocytes Percent Auto 27.1 % (18.3-44.2); Mean Corpuscular HGB Conc 31.5 g/dl (32-36); Mean Corpuscular Hemoglobin 24.9 pg (26-34); Mean Platelet Volume 11.3 fl (7.4-10.4); Monocytes Absolute Auto 0.4 K/mm3 (0.1-0.6); Monocytes Percent Auto 6.1 % (2.6-8.5); Neutrophils Absolute Auto 4.8 K/mm3 (1.3-6.7); Neutrophils Percent Auto 66.3 % (45.5-73.1); Platelet Count Result 284 k/mm3 (150-375); Red Blood Count 4.38 M/mm3 (4.2-5.4); Red Cell Distribution Width 14.3 % (11.5-14.5); White Blood Count 7.3 K/mm3 (4.5-10.0)
[2021-04-25 15:45] VITALS: BP 134/90; PULSE 100
[2021-04-25 15:46] LABS: Add Urine Microscopic? YES; Appearance Urine Cloudy (Clear); Bacteria Urine Trace /hpf; Bilirubin Urine Negative (Negative); Blood Urine Negative (Negative); Color Urine Straw (Yellow); Glucose Urine UA Negative (Negative); Ketones Urine Negative (Negative); Leukocyte Esterase Ur Negative LEU/UL (NEGATIVE); Nitrate Urine Negative (Negative); Protein Urine Negative (Negative); Specific Grav Ur 1.009 (1.001-1.035); Squamous Epithelial Cell Urine Occasional /hpf (Few); Urobilinogen Urine Negative mg/dL (<2.0)
[2021-04-25 15:51] LABS: Alanine Aminotransferase 13 U/L (4-35); Albumin Level 3.7 g/dL (3.5-5.1); Alkaline Phosphatase 142 U/L (38-126); Anion Gap 10 mmol/L (8-16); Aspartate Amino Transferase 20 U/L (14-36); Bilirubin,Total 0.5 mg/dL (0.2-1.3); Blood Urea Nitrogen 5 mg/dL (7-17); Calcium 9.4 mg/dL (8.4-10.2); Carbon Dioxide 23 mmol/L (22-30); Chloride 103 mmol/L (98-107); Estimated Glomerular Filt Rate > 60; Glucose 97 mg/dL (65-110); Potassium 3.9 mmol/L (3.4-5.0); Sodium 136 mmol/L (137-145); Uric Acid 4.6 mg/dL (2.5-7.5)
[2021-04-25 16:00] VITALS: BP 132/86; PULSE 84
[2021-04-25 16:15] VITALS: BP 134/84; PULSE 88
[2021-04-25 16:27] LABS: Creatinine Urine 55.1 mg/dL; Total Protein Urine Random 8 mg/dL; Ur Ttl Prot Creatinine Ratio 0.15 mg/mg (0-0.20)
[2021-04-25 16:30] VITALS: BP 128/84; PULSE 95
--- NOTE | 2021-04-29 07:34 | PM.OBTRLD ---
OB - Triage/Final Diagnosis Visit Information Reason for evaluation: threatened labor Comments/Additional reasons for admission: I have assessed the risk for this patient, Rosa Shin, and determined that she would benefit from observation care. Evaluation Laboratory results: Laboratory Tests 04/25/21 04/25/21 04/25/21 15:21 15:21 15:21 WBC 7.3 RBC 4.38 Hgb 10.9 L Hct 34.6 L MCV 79.0 L MCH 24.9 L MCHC 31.5 L RDW 14.3 Plt Count 284 MPV 11.3 H Immature Gran % (Auto) 0.1 Neut % (Auto) 66.3 Lymph % (Auto) 27.1 [place] % (Auto) 6.1 Eos % (Auto) 0.3 Baso % (Auto) 0.1 L Lymph # (Auto) 1.97 [place] # (Auto) 0.4 Eos # (Auto) 0.0 Baso # (Auto) 0.0 Abs Immat Gran (auto) 0.01 Absolute Neuts (auto) 4.8 Absolute Nucleated RBC 0.0 Nucleated RBC % 0.0 Sodium Potassium Chloride Carbon Dioxide Anion Gap BUN Creatinine Estim Creat Clear Calc Estimated GFR Glucose Uric Acid Calcium Total Bilirubin AST ALT Alkaline Phosphatase Total Protein Albumin Urine Color Straw Urine Appearance Cloudy H Urine pH 8.0 Ur Specific [place] 1.009 Urine Protein Negative Urine Glucose (UA) Negative Urine Ketones Negative Ur Blood (Man) Negative Urine Nitrate Negative Urine Bilirubin Negative Urine Urobilinogen Negative Ur Leukocyte Esterase Negative Ur Squamous Epith Cells Occasional Urine Bacteria Trace U Random Total Protein 8 Urine Creatinine 55.1 Protein/Creat Ratio 2 0.15 04/25/21 15:21 WBC RBC Hgb Hct MCV MCH MCHC RDW Plt Count MPV Immature Gran % (Auto) Neut % (Auto) Lymph % (Auto) [place] % (Auto) Eos % (Auto) Baso % (Auto) Lymph # (Auto) [place] # (Auto) Eos # (Auto) Baso # (Auto) Abs Immat Gran (auto) Absolute Neuts (auto) Absolute Nucleated RBC Nucleated RBC % Sodium 136 L Potassium 3.9 Chloride 103 Carbon Dioxide 23 Anion Gap 10 BUN 5 L Creatinine 0.60 L Estim Creat Clear Calc Not Reportable Estimated GFR > 60 Glucose 97 Uric Acid 4.6 Calcium 9.4 Total Bilirubin 0.5 AST 20 ALT 13 Alkaline Phosphatase 142 H Total Protein 7.0 Albumin 3.7 Urine Color Urine Appearance Urine pH Ur Specific [place] Urine Protein Urine Glucose (UA) Urine Ketones Ur Blood (Man) Urine Nitrate Urine Bilirubin Urine Urobilinogen Ur Leukocyte Esterase Ur Squamous Epith Cells Urine Bacteria U Random Total Protein Urine Creatinine Protein/Creat Ratio 2
== END 2021-04-25 16:43 | disposition home or self-care (01) ==
PROVIDERS: Admitting Provider Obstetrics & Gynecology; PCP Family Medicine; Visit Provider Obstetrics & Gynecology
DX: O47.03 False labor before 37 completed weeks of gestation, third trimester (principal); Z3A.36 36 weeks gestation of pregnancy
CPT/HCPCS: 36415; 80053; 81001; 82570; 84112; 84156; 84550; 85025; 87077; 87086; 87088; G0378; G0379

== ENCOUNTER 2021-05-05 11:12 | Outpatient (RCR) | payer OTHER, SELFPAY ==
[2021-02-14 11:28] VITALS: BP 133/75; PULSE 80
[2021-03-17 11:12] VITALS: BP 124/73; PULSE 99
[2021-05-05 11:57] VITALS: PULSE 90
== END 2021-05-15 23:59 | disposition home or self-care (01) ==
LOC: ANHOBOP 11:12
PROVIDERS: PCP Family Medicine; Visit Provider Obstetrics & Gynecology
DX: O36.8120 Decreased fetal movements, second trimester, not applicable or unspecified (principal); Z3A.26 26 weeks gestation of pregnancy; Z3A.30 30 weeks gestation of pregnancy; Z3A.37 37 weeks gestation of pregnancy
CPT/HCPCS: 59025

== ENCOUNTER 2021-05-10 00:01 | Inpatient (IN) | payer OTHER, SELFPAY ==
[2021-05-10] VITALS (119 sets, daily range): BP systolic 92–186; BP diastolic 58–158; PULSE 25–289; TEMP 36.3–37.3; O2SAT 77–100; BMI 33.5
--- OUTSIDE RECORDS SUMMARY | 2021-05-10 00:05 | XMS_ITS ---
:1995 Author Care Team Providers Name Role Phone DOLORES WRIGHT MD Primary Care Provider [phone] Allergies Code Code System Name Reaction Severity Status Onset 2670 RxNorm Codeine Nausea ? Active ? Medications Name Status Start Date Stop Date ? ? Albenza 200 mg tablet Unknown ? Not availa ble albuterol sulfate 2.5 mg/3 mL (0.083 %) Completed ? 03/23/2018 solution for nebulization albuterol sulfate HFA 90 mcg/actuation aerosol inhaler Completed ? 03/06/2020 INHALE 1 INHALATION Q 4 TO 6 H PRF SOB OR WHEEZING alprazolam 0.25 mg tablet Unknown ? Not av ailable TK 1 T PO BID amoxicillin 500 mg-potassium clavulanate 125 mg tablet Completed ? 11/23/2019 TK 1 T PO Q 12 H amoxicillin 875 mg tablet Completed ? 2018 amoxicillin 875 mg-potassium clavulanate 125 mg tablet Completed ? 05/30/2019 TK 1 T PO Q 12 H FOR 10 DAYS azithromycin 250 mg tablet Completed ? 07/02 benzonatate 200 mg capsule Completed ? 07/02 TK 1 C PO Q 8 H FOR 5 DAYS PRN buspirone 10 mg tablet Active ? Not avail able Take 1 tablet every 12 hours by oral route as needed for 30 day s. buspirone 15 mg tablet Completed ? 9 Take 1 tablet every 12 hours by oral route as needed for 30 day s. chlorhexidine gluconate 0.12 % Completed ? 1 07/31/2018 mouthwash dicyclomine 10 mg capsule Active ? Not av ailable Take 1 capsule every 12 hours by oral route as needed for 30 da ys. etonogestrel 0.12 mg-ethinyl estradiol Active ? Not available
[2021-05-10] MEDS: LACTATED RINGERS 1,000 ML 125 ML IV CONT ×3 (00:49→21:18)
[2021-05-10] MEDS: AMPICILLIN 2 GM/NS 100 ML 2 GM/100 ML BAG IVPB (00:51)
[2021-05-10 01:04] LABS: Basophils Percent Auto 0.1 % (0.2-1.2); Eosinophils Percent Auto 0.1 % (0-4.4); Hematocrit 35.6 % (37.0-47.0); Immature Granulocyte Absolute 0.02 K/mm3 (0.00-0.031); Immature Granulocyte Percent A 0.3 % (0-0.5); Lymphocytes Absolute Auto 2.49 K/mm3 (0.9-3.2); Lymphocytes Percent Auto 31.9 % (18.3-44.2); Mean Corpuscular HGB Conc 30.9 g/dl (32-36); Mean Corpuscular Hemoglobin 24.3 pg (26-34); Mean Corpuscular Volume 78.6 fl (80-100); Mean Platelet Volume 11.5 fl (7.4-10.4); Monocytes Absolute Auto 0.5 K/mm3 (0.1-0.6); Monocytes Percent Auto 6.8 % (2.6-8.5); Neutrophils Absolute Auto 4.7 K/mm3 (1.3-6.7); Neutrophils Percent Auto 60.8 % (45.5-73.1); Platelet Count Result 297 k/mm3 (150-375); Red Blood Count 4.53 M/mm3 (4.2-5.4); Red Cell Distribution Width 14.9 % (11.5-14.5); White Blood Count 7.8 K/mm3 (4.5-10.0)
--- NOTE | 2021-05-10 01:52 | LDADM ---
This patient, Rosa Shin, was admitted to Labor/Delivery/Recovery 103 on 05/10/21 at 00:01. Plans for labor, pain management and were discussed with patient. Patient/family oriented to hospital policies and general routines including ID bracelet, bed and alarms, visiting hours, pain management, procedures, bathroom and other care routines, personal items, smoking policy, room service/diet and guest tray routines, infant security routines, and visiting hours. Patient/Family are encouraged to report perceived risks to care and to ask questions if they do not understand what they are told or what they should do. See OBIX for further documentation.
[2021-05-10] MEDS: AMPICILLIN 1 GM/NS 50 ML 1 GM/50 ML BAG IVPB ×5 (04:48→21:10)
--- NOTE | 2021-05-10 17:56 | WPDANESEPPF ---
Anes - Initial Pre Proc Eval Date/Time: 05/10/21 17:56 Surgeon: Prabhu Nava MD Pre Op Diagnosis: Induction Patient Data Age: 25 Gender: F Height: 1.75 m Weight: 103 kg Last Vital Signs Temp 37.1 C 05/10/21 16:30 Pulse 97 05/10/21 17:56 BP 186/158 H 05/10/21 17:56 Pulse Ox 98 05/10/21 17:54 Allergies Allergy/AdvReac Type Severity Reaction Status Date / Time codeine Allergy Unknown Verified 04/25/21 17:02 Wasp Allergy Unknown Swelling Uncoded 04/25/21 17:02 Home Medications Medication Instructions Recorded Confirmed Type 04/25/21 History aspirin [Baby Aspirin] 04/25/21 History magnesium tablet PO 04/25/21 History Laboratory Tests 05/10/21 05/10/21 05/10/21 00:36 00:36 00:36 WBC 7.8 K/mm3 K/mm3 (4.5-10.0) RBC 4.53 M/mm3 M/mm3 (4.2-5.4) Hgb 11.0 g/dL L g/dL (12.0-15.0) Hct 35.6 % L % (37.0-47.0) MCV 78.6 fl L fl (80-100) MCH 24.3 pg L pg (26-34) MCHC 30.9 g/dl L g/dl (32-36) RDW 14.9 % H % (11.5-14.5) Plt Count 297 k/mm3 k/mm3 (150-375) MPV 11.5 fl H fl (7.4-10.4) Immature Gran % (Auto) 0.3 % % (0-0.5) Neut % (Auto) 60.8 % % (45.5-73.1) Lymph % (Auto) 31.9 % % (18.3-44.2) [place] % (Auto) 6.8 % % (2.6-8.5) Eos % (Auto) 0.1 % % (0-4.4) Baso % (Auto) 0.1 % L % (0.2-1.2) Lymph # (Auto) 2.49 K/mm3 K/mm3 (0.9-3.2) [place] # (Auto) 0.5 K/mm3 K/mm3 (0.1-0.6) Eos # (Auto) 0.0 K/mm3 K/mm3 (0-0.3) Baso # (Auto) 0.0 K/mm3 K/mm3 (0.0-0.1) Abs Immat Gran (auto) 0.02 K/mm3 K/mm3 (0.00-0.031) Absolute Neuts (auto) 4.7 K/mm3 K/mm3 (1.3-6.7) Absolute Nucleated RBC 0.0 K/mm3 K/mm3 (0.0-0.012) Nucleated RBC % 0.0 % % (0.0-0.2) RPR Pending Blood Type A Positive Antibody Screen Negative Patient hx anesthesia problems: none Family hx anesthesia problems: none Results Review: All pre-operative results and documents have been reviewed as part of the pre-operative evaluation. [facility] Past Medical History Medical History Asthma Depression with anxiety Healthy female adult No pertinent family history Wrist fracture, left Surgical History Surgical History History of surgery on left wrist No pertinent past surgical history Family History Family History Father Alive and well Mother Alive and well Social History Social History Smoking status: Never smoker Tobacco type: cigarettes Second hand tobacco smoke exposure: No Alcohol intake: current Substance use: never Gender identity (if verbalized by the patient): Female Spiritual care concerns: No Anes - Eval Final PreProcedure Day of Procedure 05/10/21 17:56 Heart: regular rate and rhythm Lungs: clear to auscultation and normal air movement Airway: Mallampati scale Neurological: alert and oriented Results Review: All pre-operative results and documents have been reviewed as part of the pre-operative evaluation. Informed Consent: The patient's anesthetic plan and its attendant risks and benefits were discussed with the patient/family/POA. Questions were solicited and answers provided to the satisfaction of the patient/family/POA.
[2021-05-10] MEDS: SODIUM CHLORIDE 0.9% IV 300 ML 600 ML I-UTERINE (22:50)
[2021-05-10] MEDS: CALCIUM CARBONATE (TUMS) 500 MG (200 MG ELEMENTAL) (23:00)
--- NOTE | 2021-05-10 23:42 | WPDHPUPDATE1 ---
History and Physical Update Update Date/Time: 05/10/21 23:42 History and Physical has been reviewed, including an updated exam of the patient. There are NO changes in the patient's condition. Risks, benefits, and alternatives have been discussed and questions answered. Patient agrees to proceed with procedure.
--- NOTE | 2021-05-10 23:42 | WPDOBADMIT ---
Obstetrics - Admit Note Admission Note: record reviewed. No pertinent additions to the history and/or any subsequent changes in the physical findings that are not consistent with the expected course of the were found. Additions to the history and/or subsequent changes in the physical findings follow. None.
--- NOTE | 2021-05-10 23:43 | PM.OBPRVD ---
OB - Delivery Note Procedure Route of delivery: Episiotomy description: None Laceration Description: None Specimen: No Quantitative Blood Loss (ml): 250 Anesthesia type: Epidural Disposition: floor Narrative: Prepped and draped in usual manner for this procedure. Maternal expulsive efforts readily delivered vertex nuchal cord noted. This was reduced in the rest of baby was delivered. Placenta delivered spontaneously. Uterus was well contracted with minimal bleeding. Cervix vagina vulva inspected no lacerations or tears. This point seizure was considered terminated with immediate postoperative condition of mother and baby both excellent. Baby Weeks of gestation at delivery: 39 Infant gender: Female Weight (pounds): 6 Weight (ounces): 4 score one minute: 9 score five minutes: 9
[2021-05-11] VITALS (13 sets, daily range): BP systolic 110–147; BP diastolic 63–100; PULSE 84–114; RESP 16–18; TEMP 36.1–36.7; O2SAT 98–100
[2021-05-11] MEDS: OXYTOCIN 30 UNITS/NS 500 ML 30 UNITS/500 ML BAG 125 UNITS IV CONT (00:15)
--- NOTE | 2021-05-11 03:32 | OBPPTRN ---
05/11/2021 at 0234 Patient transferred to post room #290. Support person and baby present. Oriented to unit, room, information board, rooming in, admission packet and security measures. Patient verbalizes understanding.
[2021-05-11 04:33] LABS: Hematocrit 29.2 % (37.0-47.0); Hemoglobin 9.2 g/dL (12.0-15.0)
--- NOTE | 2021-05-11 07:55 | PM.OBDSVD ---
DS: Admitting Diagnosis Discharge Date 05/12/2021 Admitting Diagnosis OB - DS: Summary OB Procedures : None OB Procedures Intrapartum: Spontaneous Vag Delivery OB Procedures: : None Time Spent with Patient Time attestation: Total time spent providing and/or coordinating discharge services: DS: Data Data Completed and Pending Labs on day of discharge: Labs from last 24 hours 05/11/21 04:25 Hgb 9.2 L Hct 29.2 L Discharge Plan Discharge Discharging Clinician: Prabhu Nava Patient Disposition: Home, Self-Care Activity: as tolerated Diet: as tolerated Patient Instructions: Antibiotic Form Stand Alone Forms: General Discharge Information Follow-up/Referrals: Prabhu Nava MD [Physician] - 3 Weeks Discharge Medications: New ibuprofen 600 mg Tablet 600 mg PO Q6H PRN (Reason: Cramping) Qty: 30 RF: 0 Continued RF: 0 Discontinued magnesium Tablet PO RF: 0 aspirin [Baby Aspirin] 81 mg Tablet,Chewable RF: 0 Date of admission: 05/10/21 00:01 Primary Care Provider: Colt,Rudi Admitting Provider: Prabhu Nava Attending physician on admission: Prabhu Nava Condition: Stable
[2021-05-11] MEDS: POLYSACCHARIDE IRON COMPLEX 150 MG CAPSULE PO ×2 (09:30→16:59)
[2021-05-11] MEDS: MULTIVIT/MIN/PREN/FOL AC/IRON TABLET 1 TAB PO (09:30)
[2021-05-11] MEDS: DOCUSATE SODIUM 100 MG CAPSULE PO ×2 (09:30→16:59)
[2021-05-11] MEDS: IBUPROFEN 600 MG TABLET PO ×2 (09:30→16:59)
--- NOTE | 2021-05-11 12:38 | WPDANLDPN2 ---
Anes-Prog Note L&D Date/Time: 05/11/21 12:38 Comfortable throughout: labor and delivery Neuraxial method: epidural Epidural/Spinal procedure site: clean & non-tender Neuro status: Neuro function grossly intact. Cardiovascular status: normal Respiratory status: normal Airway patency: baseline Mental status: baseline Post-Op hydration status: normal Vital Signs: Last Vital Signs Temp 36.7 C 05/11/21 07:24 Pulse 94 05/11/21 07:24 Resp 16 05/11/21 07:24 BP 124/74 05/11/21 07:24 Pulse Ox 99 05/11/21 07:24 Pain score (VAS): 06/30 I/O: Intake & Output 05/10/21 05/11/21 05/11/21 23:59 07:59 15:59 Intake Total 1050 Output Total 325 Balance 1050 -325 Patient feedback: Patient satisfied with anesthetic care.
[2021-05-12] MEDS: IBUPROFEN 600 MG TABLET PO ×2 (00:07→09:22)
[2021-05-12 06:11] LABS: Rapid Plasma Reagin Non-Reactive (NonReactive)
[2021-05-12 08:00] VITALS: BP 132/94; PULSE 68; RESP 18; TEMP 36.7
--- NOTE | 2021-05-12 08:45 | PC.NURSE ---
Reviewed breast pump care and usage, pumping schedule, nipple care, and collection and storage of breast milk. Encouraged [id number], breast massage and manual expression to stimulate supply. Assessed patient for correct flange size, placement and draw. Patient verbalizes and demonstrates understanding of instructions. Mother is pumping without difficulties or discomfort. Mother has a pump for home use and is comfortable with use. Discussed colostrum vs milk supply and mother may not see more than a few drops the first few days, milk should transition in by day 3 and she may see more volume pumped per session. Discussed increasing supplementation as requires to satisfactions. Reviewed paced feeding and suggested to stop when infant is satisfied, as long as infant is having required output. With increased supplementation may not want to feed for 4 hours. Mother will continue to pump on feeding schedule and will increase session to 20 minutes if pumping every 4 hours. Mother is feeding as required and waking to feed if needed. Infant is feeding without issue, and is currently meeting outcomes for weight, output, jaundice and feeding frequencies. Mother states she feels confident to continue current feeding plan at home. Reviewed transition to breast milk, signs of adequate intake, and engorgement/relief. Instructed to call ICP if intake/output less than required. Reviewed regular medications mother is taking. Information provided per M[facility]. Reviewed community resources on the [facility] website and in the Mom/Baby guide. Information on outpatient services provided. Mother has no further questions at this time. Instructed feeding should be initiated three hours from start of last feeding or if feeding cues are noted before until seen by ICP. Mother voiced understanding of information shared.
[2021-05-12] MEDS: POLYSACCHARIDE IRON COMPLEX 150 MG CAPSULE PO (09:22)
[2021-05-12] MEDS: BENZOCAINE 20% AER SPR (*SP) 56 GM CAN 1 SPRAY TOPICAL (09:22)
[2021-05-12] MEDS: MULTIVIT/MIN/PREN/FOL AC/IRON TABLET 1 TAB PO (09:22)
[2021-05-12] MEDS: WITCH HAZEL 40 PADS 1 PAD TOPICAL (09:22)
[2021-05-12] MEDS: DOCUSATE SODIUM 100 MG CAPSULE PO (09:23)
--- NOTE | 2021-05-12 09:29 | PC.NURSE ---
Self care and infant care discharge instructions given including follow up visit date and time. Pt. verbalized understanding. No questions or concerns voiced. Very pleasant. FOB at side.
[2021-05-13 11:30] VITALS: BP 135/85; PULSE 94; RESP 20; TEMP 37.2; O2SAT 100
--- NOTE | 2021-05-20 16:26 | P.PNOB_ITS ---
OB - Triage/Final Diagnosis Visit Information Reason for evaluation: threatened labor Comments/Additional reasons for admission: I have assessed the risk for this patient, Rosa Shin, and determined that she would benefit from observation care. Evaluation Laboratory results: Laboratory Tests 05/10/21 05/10/21 05/10/21 00:36 00:36 00:36 WBC 7.8 RBC 4.53 Hgb 11.0 L Hct 35.6 L MCV 78.6 L MCH 24.3 L MCHC 30.9 L RDW 14.9 H Plt Count 297 MPV 11.5 H Immature Gran % (Auto) 0.3 Neut % (Auto) 60.8 Lymph % (Auto) 31.9 [place] % (Auto) 6.8 Eos % (Auto) 0.1 Baso % (Auto) 0.1 L Lymph # (Auto) 2.49 [place] # (Auto) 0.5 Eos # (Auto) 0.0 Baso # (Auto) 0.0 Abs Immat Gran (auto) 0.02 Absolute Neuts (auto) 4.7 Absolute Nucleated RBC 0.0 Nucleated RBC % 0.0 RPR Non-reactive Blood Type A Positive Antibody Screen Negative 05/11/21 04:25 WBC RBC Hgb 9.2 L Hct 29.2 L MCV MCH MCHC RDW Plt Count MPV Immature Gran % (Auto) Neut % (Auto) Lymph % (Auto) [place] % (Auto) Eos % (Auto) Baso % (Auto) Lymph # (Auto) [place] # (Auto) Eos # (Auto) Baso # (Auto) Abs Immat Gran (auto) Absolute Neuts (auto) Absolute Nucleated RBC Nucleated RBC % RPR Blood Type Antibody Screen
--- NOTE | 2021-05-22 07:30 | PM.OBDSVD ---
DS: Admitting Diagnosis Discharge Date 05/12/21 Admitting Diagnosis OB - DS: Summary OB Procedures : None OB Procedures Intrapartum: Spontaneous Vag Delivery OB Procedures: : None Time Spent with Patient Time attestation: Total time spent providing and/or coordinating discharge services: Discharge Plan Discharge Discharging Clinician: Prabhu Nava Patient Disposition: Home, Self-Care Activity: as tolerated Diet: as tolerated Discharge Instructions: Education: Mom and Baby Guide Given to: Mother Follow-Up: Call your delivering provider's office for an appointment to be seen in: 4 Weeks Mom and baby should come to the [facility] for the follow-up appointment. Appointment Date/Time: Thursday, May 13, 2021 at 11:00 am What to expect at your follow-up visit: Blood Pressure Check Physical Assessment Call [phone] if you are unable to keep your appointment time. BREAST CARE: * Wear a snug supportive bra. * For engorgement discomfort: Breast Feeding: * Apply warm moist washcloths * Express milk as needed to relieve engorgement * Wear loose clothing Bottle Feeding: * May apply ice packs * For sore nipples: * Identify correct latch-on * Apply warm moist washcloths before and after nursing * Air dry nipples after nursing * May apply Lansinoh cream to nipples ABDOMINAL INCISION: (if applicable) * Allow incision to air dry * Do NOT use lotions for powders on your incision * When showering, allow soap and water to run over the incision, but do not wash incision EPISIOTOMY/PERINEAL CARE: * Until bleeding stops, use your seven bottle after urinating * Change your pad frequently throughout the day * You may take sitz baths several times a day (fill your bathtub with warm water and soak for 20 minutes.) Do NOT bathe in the water * No tub baths until seen by your physician - You may shower ACTIVITY: * Rest as much as possible. * Do not exercise or lift anything heavier than your baby (such as laundry or other children.) * Avoid stairs or driving as much as possible. * Do not put anything into the vagina. No douching, tampons, or sexual activity until seen by physician. NOTIFY PHYSICIAN IF YOU HAVE ANY QUESTIONS OR IF ANY OF THE FOLLOWING SYMPTOMS OCCUR: * If your episiotomy or incision becomes red, swollen, or more painful than what you have experienced in the hospital. * If your vaginal bleeding becomes foul smelling. * If your vaginal bleeding becomes more heavy than a period or if your bleeding changes from pink to bright red. However, you may pass an occasional walnut-sized clot once or twice for the first week . * If you experience a sharp, shooting pain in you calves. * If you discover a hard, reddened area on your breast or if you experience flu-like symptoms. DIET: * Eat regular, well-balanced meals. * Drink plenty of fluids daily. If , drink to thirst. Patient Instructions: Antibiotic Form Stand Alone Forms: General Discharge Information Follow-up/Referrals: Prabhu Nava MD [Physician] - 3 Weeks Discharge Medications: New ibuprofen 600 mg Tablet 600 mg PO Q6H PRN (Reason: Cramping) Qty: 30 RF: 0 Continued RF: 0 Discontinued magnesium Tablet PO RF: 0 aspirin [Baby Aspirin] 81 mg Tablet,Chewable RF: 0 Date of admission: 05/10/21 00:01 Primary Care Provider: Colt,[facility] Admitting Provider: Prabhu Nava Attending physician on admission: Prabhu Nava Condition: Stable
== END 2021-05-12 10:04 | disposition home or self-care (01) | DRG 560 ==
LOC: ANHLDR 00:06 → ANHOB2 05-11 02:45
PROVIDERS: Admitting Provider Obstetrics & Gynecology; PCP Family Medicine; Visit Provider Obstetrics & Gynecology
DX: O69.81X0 Labor and delivery complicated by cord around neck, without compression, not applicable or unspecified (principal); O99.824 Streptococcus B carrier state complicating childbirth; O76 Abnormality in fetal heart rate and rhythm complicating labor and delivery; Z3A.39 39 weeks gestation of pregnancy; Z37.0 Single live birth
CPT/HCPCS: 36415; 85014; 85018; 85025; 86592; 86850; 86900; 86901; A9270; J0290; J2590; J2795; J7030; J7120

== ENCOUNTER 2021-05-27 11:08 | Emergency (ER) | payer OTHER, SELFPAY | END 2021-05-27 11:17 | disposition left against medical advice (07) | PROVIDERS: Emergency Provider Internal Medicine Hematology & Oncology; PCP Family Medicine | DX: Z53.21 Procedure and treatment not carried out due to patient leaving prior to being seen by health care provider (principal) | CPT/HCPCS: 99199 ==

== ENCOUNTER 2021-05-28 11:28 | Outpatient (CLI) | payer OTHER, SELFPAY ==
--- NOTE | ~2021-05-28 | US_ITS ---
EXAMINATION: US venous doppler [facility] DATE: 05/28/2021 12:06 INDICATION: Left lower limb pain TECHNIQUE: Grayscale ultrasound images without and with compression and Doppler ultrasound images of the left lower extremity veins were obtained. COMPARISON: None. FINDINGS: The visualized portions of left common femoral vein, profunda (deep) femoral vein, femoral vein, popl iteal vein, peroneal veins, posterior tibial veins, gastrocnemius vein and greater saphenous vein out flow are patent. IMPRESSION: 1. No deep venous thrombosis in the left lower limb. Reviewed, dictated and finalized at location B. 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
== END 2021-05-28 11:29 | disposition home or self-care (01) ==
LOC: ANHIMG 11:32
PROVIDERS: PCP Family Medicine; Visit Provider Obstetrics & Gynecology
DX: M79.605 Pain in left leg (principal)
CPT/HCPCS: 93971

== ENCOUNTER 2021-12-11 14:41 | Emergency (ER) | payer OTHER, MEDICAID, SELFPAY ==
--- NOTE | ~2021-12-11 | XR_ITS ---
EXAMINATION: XR chest 2V DATE: 12/11/2021 16:48 INDICATION: Shortness of breath TECHNIQUE: PA and lateral views of the chest are obtained. COMPARISON: 01/24/2019 FINDINGS: The lungs are free of acute opacities. There is no pleural effusion or pneumothorax. The ca rdiomediastinal silhouette is normal. The visualized bones and soft tissues are unremarkable. IMPRESSION: 1. No acute cardiopulmonary abnormality. Reviewed, dictated and finalized at location F.
[2021-12-11 15:12] VITALS: BP 171/103; PULSE 97; RESP 18; TEMP 36.3; O2SAT 96
--- NOTE | 2021-12-11 15:50 | ED.GENADULT ---
HPI - General Adult General Chief complaint: Unspecified Stated complaint: episodes of trying to catch my breath Time Seen by Provider: 12/11/21 15:50 History of Present Illness HPI narrative: The patient is a 26-year-old female with a history of anxiety presenting to the emergency department for evaluation of breathlessness. Patient is reporting she feels that she cannot catch her breath after awakening this morning gasping for breath. Patient states she was able to calm herself down and go back to sleep although she felt that her anxiety level was heightened. Patient reports increased anxiety over the past week, with severe anxiety today. She denies any significant chest pain but does endorse a central chest pressure that has been present all week. She denies any exacerbating or relieving symptoms. No radiation of the pain to the back, jaw, neck, shoulder. She denies any nausea, vomiting or diaphoresis. She denies fever, chills, cough. Patient states that she has a history of asthma and did use her inhaler which did not greatly improve her symptoms. Patient denies recent long car or air travel. She denies leg swelling or calf pain. She is not on control. She does not smoke. She denies history of coagulopathy. She denies pleuritic pain. Patient also reports mild headache pain. She denies neck pain, vision changes. No thunderclap sensation. Related Data Home Medications Medication Instructions Recorded Confirmed sertraline 50 mg tablet 50 mg PO DAILY 05/27/21 05/27/21 Allergies Allergy/AdvReac Type Severity Reaction Status Date / Time codeine Allergy Intermediate Hives Verified 12/11/21 15:49 Wasp Allergy Severe Swelling Uncoded 05/27/21 11:15 Review of Systems Review of Systems: CONSTITUTIONAL: Denies fever, chills, or sweats. EYES: Denies visual changes, redness, or discharge. ENT: Denies rhinorrhea, congestion, sore throat, or otalgia. CARDIOVASCULAR: Reports central chest pressure without palpitations, denies leg edema RESPIRATORY: Denies cough, reports shortness of breath GASTROINTESTINAL: Denies abdominal pain, nausea, vomiting, or diarrhea. GENITOURINARY: Denies dysuria or hematuria. SKIN: Denies rash or itching. MUSCULOSKELETAL: Denies back pain, joint pain, or myalgia. NEUROLOGIC: Reports mild headache without numbness, or weakness. Psych: Reports significant anxiety PMFSH Past Medical History Medical History Asthma Depression with anxiety Healthy female adult No pertinent family history Wrist fracture, left Surgical History Surgical History History of surgery on left wrist No pertinent past surgical history Family History Family History Father Alive and well Mother Alive and well Social History Social History Smoking status: Never smoker Tobacco type: cigarettes Second hand tobacco smoke exposure: No Alcohol intake: current Substance use: never Gender identity (if verbalized by the patient): Female Spiritual care concerns: No Exam Narrative: GENERAL: Awake, alert, conversant HEAD: Normocephalic, atraumatic. EYES: PERRLA and EOMI. ENT: Nares clear, no rhinorrhea or epistaxis. Mucous membranes moist. NECK: Supple. CHEST: No respiratory distress, breathing even and non labored, no chest wall tenderness HEART: Tachycardic rate, regular rhythm ABDOMEN:Non distended, non tender EXTREMITIES: Normal range of motion. No edema. SKIN: Warm, dry, no rash. NEURO:No focal deficits. Alert and oriented x3. Course Vital Signs Vital signs: Vital Signs Temperature 36.3 C L 12/11/21 15:12 Pulse Rate 97 12/11/21 15:12 Respiratory Rate 18 12/11/21 15:12 Blood Pressure 171/103 H 12/11/21 15:12 Pulse Oximetry 96 12/11/21 15:12 Oxygen Delivery
--- NOTE | 2021-12-11 16:15 | PC.NURSE ---
EDP at bedside to assess pt.
--- NOTE | 2021-12-11 16:31 | ECG_ITS ---
Measurements Intervals [place] Rate: 102 P: 47 RI: 146 QRS: 18 QRSD: 85 T: 13 QT: 334 QTc: 436 Interpretive Statements SINUS TACHYCARDIA OTHERWISE NORMAL ECG NO PREVIOUS ECG AVAILABLE FOR COMPARISON Electronically Signed On 12-12-2021 16:36:37 CDT by Adarsh Ash M.D.
[2021-12-11 17:16] LABS: Basophils Percent Auto 0.2 % (0.2-1.2); Eosinophils Percent Auto 0.1 % (0-4.4); Hematocrit 39.1 % (37.0-47.0); Hemoglobin 12.2 g/dL (12.0-15.0); Immature Granulocyte Absolute 0.03 K/mm3 (0.00-0.031); Immature Granulocyte Percent A 0.3 % (0-0.5); Lymphocytes Absolute Auto 2.08 K/mm3 (0.9-3.2); Lymphocytes Percent Auto 18.7 % (18.3-44.2); Mean Corpuscular HGB Conc 31.2 g/dl (32-36); Mean Corpuscular Hemoglobin 23.8 pg (26-34); Mean Corpuscular Volume 76.4 fl (80-100); Mean Platelet Volume 10.5 fl (7.4-10.4); Monocytes Absolute Auto 0.4 K/mm3 (0.1-0.6); Neutrophils Absolute Auto 8.5 K/mm3 (1.3-6.7); Neutrophils Percent Auto 76.7 % (45.5-73.1); Platelet Count Result 335 k/mm3 (150-375); Red Blood Count 5.12 M/mm3 (4.2-5.4); Red Cell Distribution Width 16.2 % (11.5-14.5); White Blood Count 11.1 K/mm3 (4.5-10.0)
[2021-12-11 17:27] LABS: Anion Gap 10 mmol/L (8-16); Blood Urea Nitrogen 11 mg/dL (7-17); Calcium 9.4 mg/dL (8.4-10.2); Carbon Dioxide 24 mmol/L (22-30); Chloride 105 mmol/L (98-107); Estimated CRCL calculation 134 ml/min; Estimated Glomerular Filt Rate > 60; Glucose 105 mg/dL (65-110); Potassium 4.1 mmol/L (3.4-5.0); Sodium 139 mmol/L (137-145)
[2021-12-11 17:40] LABS: Troponin I < 0.012 ng/mL (0.000-0.034)
[2021-12-11 19:12] LABS: D Dimer 0.41 ug/mL (<0.48)
[2021-12-11 19:20] VITALS: BP 148/97; PULSE 96; RESP 18; O2SAT 100
--- NOTE | 2021-12-11 19:23 | PC.NURSE ---
Patient report given to LOREN Loyola. All questions answered and care of patient transferred.
== END 2021-12-11 19:35 | disposition home or self-care (01) ==
PROVIDERS: Emergency Provider Emergency Medicine; PCP Family Medicine
DX: F41.8 Other specified anxiety disorders (principal); J45.909 Unspecified asthma, uncomplicated; R00.0 Tachycardia, unspecified
CPT/HCPCS: 36415; 71046; 80048; 84484; 85025; 85380; 93005; 99284

== ENCOUNTER → 2021-12-19 13:02 | Outpatient (CLI) | payer MEDICAID, SELFPAY ==
--- NOTE | ~2021-12-19 | US_ITS ---
EXAMINATION:US venous doppler LE LT INDICATION:Left leg pain TECHNIQUE: Multiple grayscale, color flow and Doppler images of the left lower extremity deep venous systems were obtained and reviewed. COMPARISON:05/28/2021 FINDINGS: The common femoral, superficial femoral and popliteal veins demonstrate normal respiratory variation, augmentation and compressibility. Color flow is also seen within the posterior tibial, pe roneal, greater saphenous and profunda veins. IMPRESSION: 1: No lower extremity deep venous thrombosis. Reviewed, dictated and finalized at location A.
== END ==
PROVIDERS: PCP Family Medicine; Visit Provider Family Medicine
DX: M79.605 Pain in left leg (principal)
CPT/HCPCS: 93971

== ENCOUNTER 2021-12-28 11:19 | Emergency (ER) | payer MEDICAID, SELFPAY ==
--- NOTE | ~2021-12-28 | XR_ITS ---
EXAMINATION: XR chest 2V DATE: 12/28/2021 12:09 INDICATION: Cough and chest congestion TECHNIQUE: PA and lateral views of the chest were obtained. COMPARISON: Chest radiograph dated 12/11/21 FINDINGS: The lungs remain clear with no focal airspace opacities, pulmonary edema, pleural effusion or pneumot horax. The cardiomediastinal silhouette is normal. Mild thoracic spondylosis. IMPRESSION: 1. No acute cardiopulmonary disease. Reviewed, dictated and finalized at location A.
[2021-12-28 11:38] VITALS: BP 135/93; PULSE 103; RESP 18; TEMP 36.8; O2SAT 100
--- NOTE | 2021-12-28 11:51 | ED.GENADULT ---
HPI - General Adult General Chief complaint: Upper Respiratory Infection Stated complaint: chest congestion Time Seen by Provider: 12/28/21 11:52 Source: patient Mode of arrival: ambulatory Limitations: no limitations History of Present Illness HPI narrative: 26-year-old female patient presents to the [facility] with complaints of a cough with some shortness of breath for the past 4 days. Patient does have history of asthma. Patient states she has been using her home inhaler about once a day and doing a nebulizer treatment about once a day for the past 2 days. Denies any fevers that she is aware of but states she has had a headache and some congestion to the nose. Patient denies any abdominal pain, nausea, vomiting or diarrhea. Patient states she is not vaccinated against COVID but did have COVID in March 2020. Patient denies any influenza vaccine this season. Patient states she does notice that she has little bit more difficulty breathing a little bit of chest pain whenever she coughs. Related Data Home Medications Medication Instructions Recorded Confirmed albuterol sulfate 90 mcg/actuation 1 inh inhalation DIRECTED 12/28/21 12/28/21 aerosol inhaler alprazolam 0.25 mg tablet 1 tablet DIRECTED 12/28/21 12/28/21 buspirone 10 mg tablet 1 tablet BID 12/28/21 12/28/21 famotidine 20 mg tablet 1 tablet BID 12/28/21 12/28/21 norgestimate 0.25 mg-ethinyl 1 tablet DAILY 12/28/21 12/28/21 estradiol 35 mcg tablet (Estarylla) sertraline 50 mg tablet 1 tablet DAILY 12/28/21 12/28/21 Allergies Allergy/AdvReac Type Severity Reaction Status Date / Time codeine Allergy Intermediate Hives Verified 12/28/21 11:54 Wasp Allergy Severe Swelling Uncoded 12/28/21 11:54 Review of Systems Review of Systems: CONSTITUTIONAL: Denies fever, chills, or sweats. EYES: Denies visual changes, redness, or discharge. ENT: Denies rhinorrhea, positive congestion, denies sore throat, or otalgia. CARDIOVASCULAR: Denies chest pain, palpitations, or edema. RESPIRATORY: Positive cough with dyspnea. GASTROINTESTINAL: Denies abdominal pain, nausea, vomiting, or diarrhea. GENITOURINARY: Denies dysuria or hematuria. SKIN: Denies rash or itching. MUSCULOSKELETAL: Denies back pain, joint pain, or myalgia. NEUROLOGIC: Positive headache, denies numbness, or weakness. PSYCHIATRIC: Denies anxiety or depression. [facility] Past Medical History Medical History Asthma Depression with anxiety Healthy female adult No pertinent family history Wrist fracture, left Surgical History Surgical History History of surgery on left wrist No pertinent past surgical history Family History Family History Father Alive and well Mother Alive and well Social History Social History Smoking status: Never smoker Tobacco type: cigarettes Second hand tobacco smoke exposure: No Alcohol intake: current Substance use: never Gender identity (if verbalized by the patient): Female Spiritual care concerns: No Comments At the time of my signature I agree with nursing past medical history, surgical, social, and family history. There is no relevant family history pertinent to the presenting complaint. Exam Narrative: GENERAL: Well-appearing, well-nourished, and in no acute distress. HEAD: Normocephalic, atraumatic. EYES: PERRLA and EOMI. ENT: Nares with erythema edema noted bilaterally, no rhinorrhea or epistaxis. Mucous membranes moist. Posterior pharynx with no erythema tonsillar lodgment, exudates or lesions present. Bilateral TMs are clear with no erythema or foreign bodies to the canal. NECK: Supple. No lymphadenopathy CHEST: Decreased lung sounds noted to the right lower lobe on auscultation. No respiratory distress. No tripoding noted H
[2021-12-28] MEDS: ALBUTEROL SULFATE NEB 2.5 MG/3 ML INH INHALATION (12:16)
[2021-12-28] MEDS: IPRATROPIUM BR 0.02% INH SOLN 0.5 MG/2.5 ML VIAL INHALATION (12:16)
== END 2021-12-28 12:52 | disposition home or self-care (01) ==
PROVIDERS: Emergency Provider Nurse Practitioner Family; PCP Family Medicine
DX: J45.901 Unspecified asthma with (acute) exacerbation (principal); Z20.822 Contact with and (suspected) exposure to COVID-19; F41.9 Anxiety disorder, unspecified; F32.A Depression, unspecified
CPT/HCPCS: 71046; 87426; 87804; 94640; 99213; C9803; G0463

== ENCOUNTER 2022-01-01 10:35 | Emergency (ER) | payer MEDICAID, SELFPAY ==
--- NOTE | ~2022-01-01 | CT_ITS ---
EXAMINATION: CTA chest PE protocol DATE: 01/01/2022 12:54 INDICATION: Shortness of breath, chest pain and tachycardia TECHNIQUE: Computed tomography (CT) pulmonary angiogram of the chest was performed with 100 mL Omnipa que-350 intravenous contrast. Additional 3D reconstructions utilizing coronal maximum intensity proje ction (MIP) were performed. Automated exposure control and iterative reconstruction technique were em ployed. The dose-length product was 486.35 mGy-cm. COMPARISON: 04/29/2013 FINDINGS: Adequate but suboptimal contrast opacification of the pulmonary arteries. There is moderate streak ar tifact from dense contrast in the superior vena cava and right atrium. Moderate respiratory motion ar tifact at the bilateral lower lung zones, minimal in the more cephalad lungs. Overall this limits stacy luation in many of the segmental and subsegmental pulmonary arteries in the lower lungs. No definitiv e pulmonary embolism. No pneumonia, pulmonary edema, pleural effusion or pneumothorax. Heart size is normal. No pericardial effusion. Small sliding-type hiatal hernia. Thoracic aorta is normal in calibe r with no dissection. No pathologically enlarged thoracic lymphadenopathy. IMPRESSION: 1. No pulmonary embolism or other acute cardiopulmonary disease. Sensitivity is decreased in the segm ental and subsegmental pulmonary arteries of the bilateral lower lobes due to combination of suboptim al contrast opacification and moderate respiratory motion. Reviewed, dictated and finalized at location B. IMPRESSION: 1. No pulmonary embolism or other acute cardiopulmonary disease. Sensitivity is decreased in the segmental and subsegmental pulmonary arteries of the bilatera l lower lobes due to combination of suboptimal contrast opacification and moder ate respiratory motion.
--- NOTE | ~2022-01-01 | XR_ITS ---
EXAMINATION: XR chest 2V DATE: 01/01/2022 10:57 INDICATION: Chest pain with deep inspiration TECHNIQUE: PA and lateral views of the chest were obtained. COMPARISON: Chest radiograph dated 12/28/2021 FINDINGS: The lungs remain clear with no focal airspace opacities, pulmonary edema, pleural effusion or pneumot horax. The cardiomediastinal silhouette is normal. Mild midthoracic spondylosis. IMPRESSION: 1. No acute cardiopulmonary disease. Reviewed, dictated and finalized at location B.
[2022-01-01 10:36] VITALS: BP 153/103; PULSE 114; RESP 20; TEMP 37; O2SAT 100
--- NOTE | 2022-01-01 11:20 | ED.SOB ---
HPI - SOB/Dyspnea General Chief Complaint: Shortness of Breath/Dyspnea Stated Complaint: difficulty taking deep breath Time Seen by Provider: 01/01/22 10:48 Source: patient and old records reviewed Mode of arrival: ambulatory Limitations: no limitations History of Present Illness HPI Narrative: Patient is a 26 y/o female who presents to the ED with c/o difficulty taking deep breaths. Patient reports having the sensation that she is unable to take a full deep breath. She does note mild pain in her chest wall with taking a deep breath. The symptoms have been present for the last month or so, but became worse over the last 1 week. She has been seen in the ED, at urgent care, and by her primary care doctor several times for the symptoms. Over the last week, she has had a cough, congestion, runny nose. She has been taking albuterol inhaler, nebulizer, and a Z-[place]coe over the last week, but wanted to be evaluated today. She has tried taking Tylenol as well. Denies any chest pain at rest, only with taking deep breaths. Denies any dyspnea at rest or with exertion. Denies fever, chills, dizziness, lightheadedness, syncope, BLE pain or edema. Patient has history of anxiety and takes Xanax at home. Related Data Home Medications Medication Instructions Recorded Confirmed albuterol sulfate 90 mcg/actuation 1 inh inhalation DIRECTED 12/28/21 12/28/21 aerosol inhaler alprazolam 0.25 mg tablet 1 tablet DIRECTED 12/28/21 12/28/21 buspirone 10 mg tablet 1 tablet BID 12/28/21 12/28/21 famotidine 20 mg tablet 1 tablet BID 12/28/21 12/28/21 norgestimate 0.25 mg-ethinyl 1 tablet DAILY 12/28/21 12/28/21 estradiol 35 mcg tablet (Estarylla) sertraline 50 mg tablet 1 tablet DAILY 12/28/21 12/28/21 Allergies Allergy/AdvReac Type Severity Reaction Status Date / Time codeine Allergy Intermediate Hives Verified 01/01/22 10:41 Wasp Allergy Severe Swelling Uncoded 01/01/22 10:41 Review of Systems Review of Systems: CONSTITUTIONAL: Denies fever, chills, or sweats. ENT: Reports rhinorrhea, congestion. CARDIOVASCULAR: Reports chest wall pain w/ inspiration. Denies CP at rest, BLE edema. RESPIRATORY: Reports cough and difficulty taking deep breath. Denies HOYT, dyspnea at rest. GASTROINTESTINAL: Denies abdominal pain, nausea, vomiting, or diarrhea. MUSCULOSKELETAL: Denies back pain, BLE pain. NEUROLOGIC: Denies numbness, tingling, dizziness, lightheadedness, syncope, or weakness. PSYCHIATRIC: Reports anxiety. All systems reviewed & are unremarkable except as noted in HPI and below PMFSH Past Medical History Medical History Asthma Depression with anxiety Healthy female adult No pertinent family history Wrist fracture, left Surgical History Surgical History History of surgery on left wrist No pertinent past surgical history Family History Family History Father Alive and well Mother Alive and well Social History Social History Smoking status: Never smoker Tobacco type: cigarettes Second hand tobacco smoke exposure: No Alcohol intake: current Substance use: never Gender identity (if verbalized by the patient): Female Spiritual care concerns: No Exam Narrative: GENERAL: Well appearing, well-nourished, non-toxic, in no acute distress. HEAD: Normocephalic, atraumatic. EYES: PERRL/EOMI, conjunctivae clear bilaterally. NECK: Supple. No adenopathy, no masses. RESPIRATORY: Airway patent, respirations nonlabored. Clear to auscultation bilaterally, no rales, rhonchi, wheezing. No difficulty with deep inspiration on exam. CARDIOVASCULAR: Borderline tachycardia with regular rhythm without murmurs, rubs, or gallops. Peripheral pulses 2+ and equal bilaterally. ABDOMINAL: Soft, nontender, nondistended, no hepatosplenome
--- NOTE | 2022-01-01 11:39 | ECG_ITS ---
Measurements Intervals [place] Rate: 92 P: 32 NV: 159 QRS: 7 QRSD: 78 T: 12 QT: 341 QTc: 423 Interpretive Statements SINUS RHYTHM NORMAL ECG Electronically Signed On 01-01-2022 12:19:29 CDT by Evan Barragan D.O.
[2022-01-01 11:51] LABS: Basophils Percent Auto 0.2 % (0.2-1.2); Hematocrit 39.4 % (37.0-47.0); Immature Granulocyte Absolute 0.02 K/mm3 (0.00-0.031); Immature Granulocyte Percent A 0.3 % (0-0.5); Lymphocytes Absolute Auto 0.82 K/mm3 (0.9-3.2); Lymphocytes Percent Auto 13.2 % (18.3-44.2); Mean Corpuscular HGB Conc 30.5 g/dl (32-36); Mean Corpuscular Hemoglobin 23.8 pg (26-34); Mean Corpuscular Volume 78.2 fl (80-100); Monocytes Absolute Auto 0.1 K/mm3 (0.1-0.6); Monocytes Percent Auto 1.4 % (2.6-8.5); Neutrophils Absolute Auto 5.3 K/mm3 (1.3-6.7); Neutrophils Percent Auto 84.9 % (45.5-73.1); Platelet Count Result 309 k/mm3 (150-375); Red Blood Count 5.04 M/mm3 (4.2-5.4); Red Cell Distribution Width 16.2 % (11.5-14.5); White Blood Count 6.2 K/mm3 (4.5-10.0)
[2022-01-01] MEDS: KETOROLAC (*BKC) 60 MG/2 ML VIAL IM (12:03)
[2022-01-01 12:06] LABS: Alanine Aminotransferase 32 U/L (6-35); Albumin Level 5.1 g/dL (3.5-5.1); Alkaline Phosphatase 64 U/L (38-126); Anion Gap 11 mmol/L (8-16); Aspartate Amino Transferase 25 U/L (14-36); Bilirubin,Total 0.6 mg/dL (0.2-1.3); Blood Urea Nitrogen 10 mg/dL (7-17); Calcium 9.4 mg/dL (8.4-10.2); Carbon Dioxide 23 mmol/L (22-30); Chloride 107 mmol/L (98-107); Estimated CRCL calculation 135 ml/min; Estimated Glomerular Filt Rate > 60; Glucose 126 mg/dL (65-110); Potassium 4.3 mmol/L (3.4-5.0); Sodium 141 mmol/L (137-145)
[2022-01-01 13:31] VITALS: BP 148/62; PULSE 73; RESP 20; O2SAT 99
== END 2022-01-01 14:27 | disposition home or self-care (01) ==
PROVIDERS: Physician Assistant; Emergency Provider Emergency Medicine; PCP Family Medicine
DX: R07.1 Chest pain on breathing (principal); F41.8 Other specified anxiety disorders; R06.81 Apnea, not elsewhere classified; J45.909 Unspecified asthma, uncomplicated
CPT/HCPCS: 36415; 71046; 71275; 80053; 81025; 85025; 93005; 96372; 99284; J1885; Q9967

== ENCOUNTER → 2022-05-21 14:11 | Outpatient (CLI) | payer OTHER, SELFPAY ==
--- NOTE | ~2022-05-21 | XR_ITS ---
XR knee LT min 4V DATE: 05/21/2022 12:06 INDICATION: Left knee pain TECHNIQUE: 4 views including crosstable lateral. Gonadal shielding. COMPARISON: None FINDINGS: Joint spaces are well preserved. No fracture or dislocation or joint effusion. No periostea l reaction or bone destruction. No radiopaque intra-articular loose body or chondrocalcinosis. IMPRESSION: Negative Reviewed, dictated and finalized at location B. 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
== END ==
PROVIDERS: PCP Nurse Practitioner Family; Visit Provider Nurse Practitioner Family
DX: M25.562 Pain in left knee (principal)
CPT/HCPCS: 73564

== ENCOUNTER 2022-06-23 11:43 | Emergency (ER) | payer OTHER, SELFPAY ==
[2022-06-23 12:06] VITALS: BP 148/105; PULSE 107; RESP 18; TEMP 36.3; O2SAT 100
--- NOTE | 2022-06-23 12:19 | ED.URI ---
HPI - URI/Sore Throat General Chief Complaint: Upper Respiratory Infection Stated Complaint: sob,cough,congestion Time Seen by Provider: 06/23/22 12:19 Source: patient Mode of arrival: ambulatory Limitations: no limitations History of Present Illness HPI Narrative: 26-year-old female presents with complaint cough for 10 days. History of asthma. Reports shortness of breath with exertion last 2-3 days. Afebrile. Using inhaler with some relief. Afebrile But does report fever for 2 days when symptoms 1st started. Reports coughing up yellow sputum. All systems reviewed and negative except as noted above. Related Data Allergies Allergy/AdvReac Type Severity Reaction Status Date / Time codeine AdvReac Intermediate Hives Verified 06/23/22 12:06 Wasp AdvReac Severe Swelling Uncoded 06/23/22 12:06 Review of Systems Review of Systems: CONSTITUTIONAL: Denies fever, chills, or sweats. EYES: Denies visual changes, redness, or discharge. ENT: Denies rhinorrhea, congestion, sore throat, or otalgia. CARDIOVASCULAR: Denies chest pain, palpitations, or edema. RESPIRATORY: Reports cough, chest congestion and dyspnea with exertion. GASTROINTESTINAL: Denies abdominal pain, nausea, vomiting, or diarrhea. GENITOURINARY: Denies dysuria or hematuria. SKIN: Denies rash or itching. MUSCULOSKELETAL: Denies back pain, joint pain, or myalgia. NEUROLOGIC: Denies headache, numbness, or weakness. PSYCHIATRIC: Denies anxiety or depression. All other systems reviewed are negative, except as documented in HPI. [facility] Past Medical History Medical History (Updated 06/23/22 @ 12:43 by Sally Dhaliwal NP) Allergies Anemia Anxiety Asthma Back pain affecting BMI 35.0-35.9,adult Depression with anxiety Elevated blood sugar Encounter to establish care Gastroenteritis GERD (gastroesophageal reflux disease) Gestational hypertension Healthy female adult Hirsutism Hyperlipidemia Left knee pain Low back pain radiating to left leg No pertinent family history Pain, joint, multiple sites Rash and nonspecific skin eruption Seasonal allergies Shortness of breath UTI (urinary tract infection) Wrist fracture, left Surgical History Surgical History History of surgery on left wrist No pertinent past surgical history Family History Family History Father Alive and well Mother Alive and well Grandparent Diabetes mellitus paternal grandfather Social History Social History Smoking status: Never smoker Second hand tobacco smoke exposure: No Alcohol intake: current Alcohol use details: Occasionally Substance use: never Substance use type: does not use Lack of Transportation: No Lack of Food: Never True Current Housing: I Have Housing Concerned About Future Housing: No Difficulty Paying Gas/Electric Bills: No Difficulty Paying for Meds: No Currently Unemployed: No Education: High School Diploma/GED Difficulty w/ Childcare or Family Care: No Additional living arrangements comments: Additional occupation/education comments: [employer] Gender identity (if verbalized by the patient): Female Sexual Orientation (if Verbalized by the Patient): Straight or Heterosexual Spiritual care concerns: No Comments At time of signature, agree with nursing past medical, surgical, social and family history. There is no relevant family history pertinent to the presenting complaint. Exam Narrative: GENERAL: This is a well-nourished, well-developed patient, in no apparent distress. HEAD: normocephalic, atraumatic. EYES: PERRL. Sclera clear/white. Vision is grossly intact. EARS: External ears normal, auditory canals clear and without drainage, TMs normal without perforation. Hearing grossly intact. NOSE: External nose n
== END 2022-06-23 12:28 | disposition home or self-care (01) ==
PROVIDERS: Emergency Provider Nurse Practitioner Family; PCP Nurse Practitioner Family
DX: J22 Unspecified acute lower respiratory infection (principal); J45.901 Unspecified asthma with (acute) exacerbation; J45.909 Unspecified asthma, uncomplicated; K21.9 Gastro-esophageal reflux disease without esophagitis; E78.5 Hyperlipidemia, unspecified; F41.9 Anxiety disorder, unspecified; F32.A Depression, unspecified
CPT/HCPCS: 99213; G0463

== ENCOUNTER 2022-07-20 17:24 | Emergency (ER) | payer OTHER, SELFPAY ==
[2022-07-20 17:45] VITALS: BP 147/96; PULSE 96; RESP 18; TEMP 36.2; O2SAT 100
--- NOTE | 2022-07-20 18:21 | ED.UPPEXIN ---
HPI - Extremity Injury (Upper) General Chief Complaint: Extremity Injury, Upper Stated Complaint: lt shoulder pain Source: patient Mode of arrival: ambulatory Limitations: no limitations History of Present Illness HPI narrative: 26-year-old female presents to [facility] with complaints of pain to her left trapezius region moving into her left shoulder for the past 3 days. Patient reports that the pain is worse with range of motion. Patient has been taking [id number] ibuprofen, Tylenol and using icy hot patches with minimal relief. Patient denies chest pain, shortness of breath, nausea, vomiting or diarrhea. Patient reports history of acne to her back and denies new rash to area complaint: injury to: left and shoulder Onset (ago): day(s) (3) Handedness: right Relieving factors: none Exacerbating factors: movement of extremity Associated symptoms: denies other symptoms Treatments prior to arrival: NSAIDS Related Data Allergies Allergy/AdvReac Type Severity Reaction Status Date / Time codeine AdvReac Intermediate Hives Verified 06/23/22 12:06 Wasp AdvReac Severe Swelling Uncoded 06/23/22 12:06 Review of Systems Constitutional: Constitutional: Denies chills, Denies fatigue, Denies fever(s) and Denies weakness ENT: Denies dizziness, Denies epistaxis and Denies nasal congestion Respiratory: Respiratory: Denies cough, Denies dyspnea and Denies wheezing Gastrointestinal: Gastrointestinal: Denies diarrhea, Denies nausea and Denies vomiting Musculoskeletal: Comments: Pain to left trapezius moving to left shoulder Integumentary/Breasts: Skin/Breast: Denies erythema and Denies rash PMFSH Past Medical History Medical History Allergies Anemia Anxiety Asthma Back pain affecting BMI 35.0-35.9,adult Depression with anxiety Elevated blood sugar Encounter to establish care Gastroenteritis GERD (gastroesophageal reflux disease) Gestational hypertension Healthy female adult Hirsutism Hyperlipidemia Left knee pain Low back pain radiating to left leg No pertinent family history Pain, joint, multiple sites Rash and nonspecific skin eruption Seasonal allergies Shortness of breath UTI (urinary tract infection) Wrist fracture, left Surgical History Surgical History History of surgery on left wrist No pertinent past surgical history Family History Family History Father Alive and well Mother Alive and well Grandparent Diabetes mellitus paternal grandfather Social History Social History Smoking status: Never smoker Second hand tobacco smoke exposure: No Alcohol intake: current Alcohol use details: Occasionally Substance use: never Substance use type: does not use Lack of Transportation: No Lack of Food: Never True Current Housing: I Have Housing Concerned About Future Housing: No Difficulty Paying Gas/Electric Bills: No Difficulty Paying for Meds: No Currently Unemployed: No Education: High School Diploma/GED Difficulty w/ Childcare or Family Care: No Living arrangements: other Additional living arrangements comments: Occupation/Education: occupation Additional occupation/education comments: [employer] Gender identity (if verbalized by the patient): Female Sexual Orientation (if Verbalized by the Patient): Straight or Heterosexual Spiritual care concerns: No Comments At time of signature, I agree with nursing past medical, surgical, social and family history. There is no relevant family history pertinent to the presenting complaint. Exam Const: General: healthy appearing and no acute distress Nutritional Appearance: well nourished Orientation/consciousness: patient oriented x3 Limitations: no limitations
[2022-07-20 18:34] VITALS: BP 149/92
== END 2022-07-20 18:34 | disposition home or self-care (01) ==
PROVIDERS: Emergency Provider Nurse Practitioner Family; PCP Nurse Practitioner Family
DX: M62.838 Other muscle spasm (principal); J45.909 Unspecified asthma, uncomplicated; K21.9 Gastro-esophageal reflux disease without esophagitis; E78.5 Hyperlipidemia, unspecified; F41.9 Anxiety disorder, unspecified
CPT/HCPCS: 99213; G0463

== ENCOUNTER 2022-09-17 09:18 | Emergency (ER) | payer OTHER, SELFPAY ==
--- NOTE | 2022-09-17 09:29 | ED.URI ---
HPI - URI/Sore Throat General Chief Complaint: Upper Respiratory Infection Stated Complaint: uri Time Seen by Provider: 09/17/22 10:11 Source: patient and RN notes reviewed Mode of arrival: ambulatory Limitations: no limitations History of Present Illness HPI Narrative: 26-year-old female presents with multiple concerns. She reports 1 week history of sinus congestion and drainage, scratchy throat. She reports she called her doctor after 2 days of illness and they called in Augmentin. Reports she took the Augmentin for a couple of days and then felt slightly better so she stopped taking it. Reports her symptoms started again about 2 days ago. She denies fever, aches, chills, sweats, cough. In a separate complaint she reports a spot on the left side of her neck that started off as a pimple that was red raised, she picked at it and it drained and now it is tender. MD elicited complaint: rhinorrhea, nasal congestion and other (skin infection) Related Data Allergies Allergy/AdvReac Type Severity Reaction Status Date / Time codeine AdvReac Intermediate Hives Verified 09/17/22 09:38 Review of Systems Review of Systems: CONSTITUTIONAL: Denies malaise, chills, sweats, or fever. EYES: Denies visual changes, redness, or discharge. ENT: Reports rhinorrhea, congestion, scratchy throat. Denies sinus pain, otalgia and sore throat. CARDIOVASCULAR: Denies chest pain, palpitations, or edema. RESPIRATORY: Denies cough. Denies dyspnea. GASTROINTESTINAL: Denies abdominal pain, nausea, vomiting, diarrhea SKIN: Reports a red spot on her neck that is tender MUSCULOSKELETAL: Denies myalgia. NEUROLOGIC: Denies headache. All systems reviewed & are unremarkable except as noted in HPI and below [facility] Past Medical History Medical History (Updated 09/17/22 @ 10:23 by Jessy Rice NP) Allergies Anemia Anxiety Asthma Back pain affecting BMI 35.0-35.9,adult Depression with anxiety Elevated blood sugar Encounter to establish care Gastroenteritis GERD (gastroesophageal reflux disease) Gestational hypertension Healthy female adult Hirsutism Hyperlipidemia Left knee pain Low back pain radiating to left leg Lump of left breast Menometrorrhagia Migraines No pertinent family history Pain, joint, multiple sites Panic attacks Rash and nonspecific skin eruption Seasonal allergies Shortness of breath UTI (urinary tract infection) Wrist fracture, left Surgical History Surgical History History of surgery on left wrist No pertinent past surgical history Family History Family History Father Alive and well Mother Alive and well Grandparent Diabetes mellitus paternal grandfather Social History Social History Smoking status: Never smoker Second hand tobacco smoke exposure: No Alcohol intake: current Alcohol use details: Occasionally Substance use: never Substance use type: does not use Lack of Transportation: No Lack of Food: Never True Current Housing: I Have Housing Concerned About Future Housing: No Difficulty Paying Gas/Electric Bills: No Difficulty Paying for Meds: No Currently Unemployed: No Education: High School Diploma/GED Difficulty w/ Childcare or Family Care: No Living arrangements: other Additional living arrangements comments: Occupation/Education: occupation Additional occupation/education comments: [employer] Gender identity (if verbalized by the patient): Female Sexual Orientation (if Verbalized by the Patient): Straight or Heterosexual Spiritual care concerns: No Comments At time of signature, agree with nursing past medical, surgical, social and family history. There is no relevant family history pertinent to the presenting complaint Exam Narrative: GENERAL: Well-appearin
[2022-09-17 09:41] VITALS: BP 151/84; PULSE 90; RESP 16; TEMP 36.4; O2SAT 100
== END 2022-09-17 10:29 | disposition home or self-care (01) ==
PROVIDERS: Emergency Provider Nurse Practitioner; PCP Nurse Practitioner Family
DX: J30.9 Allergic rhinitis, unspecified (principal); L08.9 Local infection of the skin and subcutaneous tissue, unspecified; J45.909 Unspecified asthma, uncomplicated; K21.9 Gastro-esophageal reflux disease without esophagitis; E78.5 Hyperlipidemia, unspecified; F41.8 Other specified anxiety disorders
CPT/HCPCS: 99213; G0463

== ENCOUNTER 2023-11-01 11:53 | Emergency (ER) | payer OTHER, SELFPAY ==
[2023-11-01 12:01] VITALS: BP 140/98; PULSE 96; RESP 18; TEMP 36.6; O2SAT 100
--- NOTE | 2023-11-01 12:09 | ED.URI ---
HPI - URI/Sore Throat General Chief Complaint: Upper Respiratory Infection Stated Complaint: Sinus Problems and Earache Time Seen by Provider: 11/01/23 12:09 Source: patient Mode of arrival: ambulatory Limitations: no limitations History of Present Illness HPI Narrative: 27-year-old female presents with complaint of sinus congestion or pressure, pain for 3 days. Patient reports sinus congestion, postnasal drainage, coughing and sore throat for the past week. Patient concern for bacterial sinus infection. Afebrile. Taking Claritin and Flonase daily. All systems reviewed and negative except as noted above. Related Data Home Medications Medication Instructions Recorded Confirmed cetirizine 10 mg tablet 10 mg PO DAILY PRN Allergy Symptoms 11/09/22 11/01/23 Allergies Allergy/AdvReac Type Severity Reaction Status Date / Time codeine AdvReac Mild Hives Verified 11/01/23 11:54 Review of Systems Review of Systems: CONSTITUTIONAL: Denies fever, chills, or sweats. reports fatigue. EYES: Denies visual changes, redness, or discharge. ENT: Reports rhinorrhea, congestion, sore throat, ear pressure bilaterally CARDIOVASCULAR: Denies chest pain, palpitations, or edema. RESPIRATORY: reports cough. Denies dyspnea. GASTROINTESTINAL: Denies abdominal pain, nausea, vomiting, or diarrhea. GENITOURINARY: Denies dysuria or hematuria. SKIN: Denies rash or itching. MUSCULOSKELETAL: Denies back pain, joint pain, or myalgia. NEUROLOGIC: Denies headache, numbness, or weakness. PSYCHIATRIC: Denies anxiety or depression. All other systems reviewed are negative, except as documented in HPI. [facility] Past Medical History Medical History Acute sinusitis ADHD Allergies Anemia Anxiety Asthma Back pain affecting BMI 34.0-34.9,adult BMI 35.0-35.9,adult Depression with anxiety Edema Elevated blood sugar Elevated BP without diagnosis of hypertension Encounter to establish care Enlarged thyroid Gastroenteritis GERD (gastroesophageal reflux disease) Gestational hypertension Healthy female adult Hirsutism Hyperlipidemia Insomnia Left knee pain Low back pain radiating to left leg Lump of left breast Menometrorrhagia Migraines No pertinent family history Pain, joint, multiple sites Panic attacks Rash and nonspecific skin eruption Seasonal allergies Shortness of breath UTI (urinary tract infection) Wrist fracture, left Surgical History Surgical History History of surgery on left wrist No pertinent past surgical history Family History Family History Father Alive and well Mother Alive and well Grandparent Diabetes mellitus paternal grandfather Social History Social History (Updated 10/13/23 @ 10:31 by WILLARD Donahue) Smoking status: Never smoker Second hand tobacco smoke exposure: No Alcohol intake: current Alcohol use details: Occasionally 1-2 year Substance use: never Substance use type: does not use Do You Feel Safe in your Home?: Yes Lack of Transportation: No Lack of Food: Never True Current Housing: I Have Housing Concerned About Future Housing: No Difficulty Paying Gas/Electric Bills: No Difficulty Paying for Meds: No Currently Unemployed: No Education: High School Diploma/GED Difficulty w/ Childcare or Family Care: No Living arrangements: other Additional living arrangements comments: Occupation/Education: occupation Additional occupation/education comments: [employer] Gender identity (if verbalized by the patient): Female Sexual Orientation (if Verbalized by the Patient): Straight or Heterosexual Spiritual care concerns: No Comments At time of signature, agree with nursing past medical, surgical, social and family history. There is no relevant fam
== END 2023-11-01 12:21 | disposition home or self-care (01) ==
PROVIDERS: Emergency Provider Nurse Practitioner Family; PCP Nurse Practitioner Family
DX: J01.80 Other acute sinusitis (principal); B96.89 Other specified bacterial agents as the cause of diseases classified elsewhere; F90.9 Attention-deficit hyperactivity disorder, unspecified type; J45.909 Unspecified asthma, uncomplicated; F41.8 Other specified anxiety disorders; E78.5 Hyperlipidemia, unspecified
CPT/HCPCS: 99213; G0463

== ENCOUNTER 2025-04-01 14:38 | Emergency (ER) | payer OTHER, SELFPAY ==
--- NOTE | ~2025-04-01 | XR_ITS ---
EXAMINATION: XR elbow RT min 3V, 04/01/2025 15:03 CDT HISTORY: fall today. Pain and swelling COMPARISON: No comparisons available. Findings: No acute fracture or malalignment. No significant degenerative changes. Soft tissues unremarkable. Impression: No acute fracture or malalignment. Reviewed, dictated and finalized at location P. Impression: No acute fracture or malalignment.
--- OUTSIDE RECORDS SUMMARY | 2025-04-01 14:40 | XMS_ITS | Patient Health Record ---
Author Organization [facility] Address [address] [place] [address] [address] [facility] [address] [place] [address] Care Team Providers Care Juice Weigher Name Role Phone Kayce Lopez Unavailable [phone] Reason For Referral No Information Plan Of Treatment No Information
--- OUTSIDE RECORDS SUMMARY | 2025-04-01 14:43 | XMS_ITS | Clinical Summary ---
Author Organization [facility] Address [address] [place] [address] Care Team Providers Care Wind Turbine Machinist Name Role Phone Xander Patricia CATY Primary Care Provider Allergies Active Allergy Reactions Criticality Noted Date Comments Codeine Vomiting Low 02/21/2020 Medications escitalopram (LEXAPRO) 10 MG tablet Take 0.5 tablets (5 mg total) by mouth daily. Active ALPRAZolam (XANAX) 0.25 MG tablet Take 1 tablet (0.25 mg total) by mouth nightly as needed for Sleep. Active albuterol sulfate HFA 108 (90 Base) MCG/ACT inhaler Inhale 2 puffs into the lungs every 6 (six) hours as needed for Wheezing. Active norethindrone (AYGESTIN) 5 MG tablet Take 0.35 mg by mouth daily. Active fluticasone propionate (FLONASE) 50 MCG/ACT nasal spray Active naproxen (NAPROSYN) 500 MG tablet Take 1 tablet (500 mg total) by mouth 2 (two) times daily with meals. 60 tablet 07/13/2023 Active Active Problems Problem Noted Date Diagnosed Date Neck pain 08/30/2020 Cyst of ovary 08/07/2020 Premenstrual dysphoric disorder 08/07/2020 Irritable bowel syndrome 07/09/2020 Obesity 03/12/2020 History of miscarriage 01/25/2019 History of gestational hypertension 08/09/2018 Encounter for education about contraceptive use 08/09/2018 Asthma 08/09/2018 Anxiety 08/09/2018 Mixed anxiety and depressive disorder 08/09/2018 Immunizations Immunization Administration Dates Next Due Dtap 01/17/2001,07/11/1996,04/25/1996 ,01/18/1996 Dtap (Generic) 01/17/2001,07/11/1996,04/25/1996 ,01/18/1996 HPV 03/11/2010,01/07/2010 HPV4 (Gardasil) 07/12/2010,03/11/2010,01/07/2010 Hepatitis A Vaccine - 2 Dose 01/07/2010 Hepatitis B Pediatric 05/21/1997,01/18/1996,11/19 Hib (Generic) 07/11/1996,01/18/1996,1995 Influenza Adult (Generic) 03/06/2020 MMR 03/02/2001,01/17/2001 MMR (Generic) 03/02/2001,01/17/2001 Meningococcal Vac A,C,Y,W-135 Sc 01/07/2010 Polio Opv (Generic) 01/17/2001,07/11/1996,1995,01/18/1996 Tdap (Generic) 05/18/2008 Family History Medical History Relation Comments No Known Problems Father No Known Problems Mother Relation Status Comments Father Alive Mother Alive Social History Tobacco Use Types Packs/Day Years Used Date Smoking Tobacco: Never Smokeless Tobacco: Never Tobacco Cessation:Counseling Given: No Alcohol Use Standard Drinks/Week Comments Yes 0 (1 standard drink = 0.6 oz pur e alcohol) AUDIT-C Answer Date Recorded Q1: How often do you have a drink containing alc ohol? Monthly or less 08/12/2020 Q2: How many drinks containi ng alcohol do you have on a typical day when you are drinking? 1 or 2 08/12/2020 Frequency of Binge Drinking Not on file 07/23 PHQ-2 Answer Date Recorded Patient Health Questionnaire-2 Score 0 07/14/2023 Comments No Sex and Gender Information Value Date Recorded Sex Assigned at Not on file Legal Sex Female 9:20 AM CDT Gender Identity Not on file Sexual Orientation Not on file Last Filed Vital Signs Vital Sign Reading Time Taken Comments Blood Pressure 132/84 07/14/2023 12:59 PM [employer] Pulse 110 07/14/2023 12:59 PM [employer] Temperature 37.3 C (99.1 F) 07/14/2023 12:59 PM [employer] Respiratory Rate 18 07/14/2023 12:59 PM [employer] Oxygen Saturation 100% 07/14/2023 12:59 PM [employer] Inhaled Oxygen Concentration - - Weight 109.8 kg (242 lb) 07/14/2023 12:59 PM [employer] Height 175.3 cm (5' 9) 07/14/2023 12:59 PM [employer] Body Mass Index 35.74 07/14/2023 12:59 PM [employer] Plan of Treatment Health Maintenance Due Date Last Done Comments Cervical Cancer Screening Pap Smear (Age 21 to 29) Every 3 Years 1995 Cervical Cancer Screening 1995 Annual Physical 12/05/1998 Hepatitis C 12/05/2013 Pneumococcal Vaccine: Pediatrics (0 to 5 Years) and At-Risk Patients (6 to 49 Years) (1 of 2 - PCV) 12/05/2014 DTaP, Tdap and Td Vaccines (6 - Td or Tdap) 05/18/2018 05/18/2008, 01/17/2001, 01/17/2001, Additional history exists PHQ-2 (Physician [place]) 06/21/2024 07/14/2023 COVID-19 Vaccine ( season) 2025 Influenza Adult (#1) 2025 03/06/2020 Hepatitis B Vaccines Completed 05/21/1997, 01/18/1996, 1995 Meningococcal Vaccine Aged Out 01/07/2010 No abelardo etienne eligible based on patient's age to complete this topic HPV Vaccines Completed 07/12/2010, 02/20, 03/11/2010, Additional history exists Meningococcal B Vaccine Aged Out No l onger eligible based on patient's age to complete this topic RSV Immunizations Under 20 Months Aged Out No longer eligible based on patient's age to complete this topic Insurance [employer] Care Teams Wind Turbine Machinist Relationship Specialty Start Date End Date Patricia Terrell APNP [address] [id number] PCP - General Nurse Practitioner Family 07/08/23
[2025-04-01 14:48] VITALS: BP 130/87; PULSE 95; RESP 18; TEMP 36.6; O2SAT 100
--- NOTE | 2025-04-01 15:45 | ED.UPPEXIN ---
HPI - Extremity Injury (Upper) General Chief Complaint: Extremity Injury, Upper Stated Complaint: Fall Time Seen by Provider: 04/01/25 15:00 Source: patient and RN notes reviewed Mode of arrival: ambulatory Limitations: no limitations History of Present Illness HPI narrative: Patient presents today complaining of right elbow injury. 1 hour prior to arrival, she fell back wards and struck her posterior elbow on a log. Denies head injury or LOC. Reports increased pain with full extension. Rates her pain at rest 3/10, which increases significantly with movement. No OTC treatment prior to arrival. Related Data Allergies Allergy/AdvReac Type Severity Reaction Status Date / Time codeine Allergy Mild Hives Verified 04/01/25 14:49 PMFSH Past Medical History Medical History Cellulitis of arm, right Acne Hypertension Elevated BP without diagnosis of hypertension ADHD Insomnia Enlarged thyroid BMI 34.0-34.9,adult Edema Acute sinusitis Menometrorrhagia Migraines Panic attacks Lump of left breast Hyperlipidemia UTI (urinary tract infection) Low back pain radiating to left leg Left knee pain Rash and nonspecific skin eruption Anxiety BMI 35.0-35.9,adult Pain, joint, multiple sites Hirsutism GERD (gastroesophageal reflux disease) Seasonal allergies Shortness of breath Encounter to establish care Elevated blood sugar Anemia Allergies Gestational hypertension Back pain affecting Gastroenteritis Asthma No pertinent family history Wrist fracture, left Depression with anxiety Healthy female adult Surgical History Surgical History History of surgery on left wrist No pertinent past surgical history Family History Family History Father Alive and well Mother Alive and well Grandparent Diabetes mellitus paternal grandfather Social History Social History Smoking status: Never smoker Second hand tobacco smoke exposure: No Alcohol intake: current Alcohol use details: Occasionally 1-2 year Substance use: never Substance use type: does not use Do You Feel Safe in your Home?: Yes Lack of Transportation: No Lack of Food: Never True Current Housing: I Have Housing Concerned About Future Housing: No Difficulty Paying Gas/Electric Bills: No Difficulty Paying for Meds: No Currently Unemployed: No Education: High School Diploma/GED Difficulty w/ Childcare or Family Care: No Living arrangements: other Additional living arrangements comments: Occupation/Education: occupation Additional occupation/education comments: [employer] Gender identity (if verbalized by the patient): Female Sexual Orientation (if Verbalized by the Patient): Straight or Heterosexual Spiritual care concerns: No Comments At time of signature, I have reviewed and agree with nursing past medical, surgical, social and family history unless otherwise noted. Please see nursing chart for further information. There is no relevant family history pertinent to the presenting complaint Exam Narrative: GENERAL: Well-appearing, well-nourished, and in no acute distress. HEAD: Normocephalic, atraumatic. EYES: EOMI. No redness or drainage. Conjunctivae normal. ENT: Mucous membranes pink and moist. NECK: Normal AROM. CHEST: No respiratory distress. EXTREMITIES: Right elbow: Tenderness to the lateral epicondyle and proximal radius. No tenderness to the olecranon process or medial epicondyle. Generalized elbow edema. Pain elicited with any range of motion. Distal bicep firm. No ecchymosis or deformity noted. Distal sensation intact. Capillary refill normal. Radial pulse normal. SKIN: Warm, dry, no rash. Capillary refill normal. Normal skin turgor. NEURO: No focal deficits. Alert and oriented x3. Gait steady. PSYCH: Normal affect. No signs of depression or anxiety. Course Course Level of Care: Express Care Visit Vital Signs Vital signs: Vital Signs Temperature 97.8 F 04/01/25 14:48 Pulse Rate 95 04/01/25 14:48 Respiratory Rate 18 04/01/25 14:48 Blood Pressure 130/87 04/01/25 14:48 Pulse Oximetry 100 04/01/25 14:48 Oxygen Delivery Room Air 04/01/25 14:48 Temperature 97.8 F 04/01/25 14:48 Pulse Rate 95 04/01/25 14:48 Respiratory Rate 18 04/01/25 14:48 Blood Pressure 130/87 04/01/25 14:48 Pulse Oximetry 100 04/01/25 14:48 Oxygen Delivery Room Air 04/01/25 14:48 Reviewed Procedures Orthopedic Splinting/Casting Injury #1: Splinting/Casting Date: 04/01/25 Splinting/Casting Time: 15:45 Side: right OCL: long arm Pre-Procedure Neuro Vascular Exam: normal Post-Procedure Neuro Vascular Exam: normal Other Orthopedic Equipment: other (Sling) MDM - Extremity Injury (Upper) MDM Narrative Medical decision making narrative: 29-year-old female presents today with right elbow injury after she tripped and fell onto her right elbow 1 hour prior to arrival. Upon exam, patient has tenderness to the lateral epicondyle and area of the radial head. Generalized elbow edema and pain with range of motion. Neurovascularly intact. X-rays negative for fracture, however, given patient's tenderness, location of her pain, and generalized edema, she has been placed in an OCL and sling with recommendation to follow-up with orthopedics for further evaluation. Patient agrees with plan. Vital signs stable. Anticipatory guidance given. Differential Diagnosis Differential diagnosis: Likely other (Elbow fracture, contusion, sprain, tendon injury, ligamentous injury) Imaging Data Radiologist's impression: ITS Impressions Elbow X-Ray 04/01/25 15:27 Impression: No acute fracture or malalignment. Critical Care Time Critical Care Time Critical Care Time: No Discharge Plan Discharge Clinical Impression: Injury of elbow, right Qualifiers: Encounter type: initial encounter Qualified Code(s): S59.901A - Unspecified injury of right elbow, initial encounter Fall Qualifiers: Encounter type: initial encounter Qualified Code(s): W19.XXXA - Unspecified fall, initial encounter Patient Disposition: Home Condition: Stable Instructions: P.R.I.C.E. Treatment (ED) Additional Instructions: As discussed, your x-ray is negative for fracture. Due to your swelling and tenderness, you have been placed in a temporary splint and sling. Elevate and ice your elbow. Call tomorrow and schedule a follow-up visit with Orthopedics for further evaluation. Take Tylenol or ibuprofen for discomfort. Patient Language: Belarusian Prescriptions: No Action albuterol sulfate 90 mcg/actuation HFA aerosol inhaler 1 - 2 inh inhalation Q4H PRN (Reason: shortness of breath or wheezing) Qty: 8.5 2RF escitalopram oxalate [Lexapro] 5 mg tablet 5 mg PO DAILY Qty: 30 5RF Rx Instructions: take with escitalopram 10mg daily to equal 15mg escitalopram oxalate [Lexapro] 10 mg tablet 10 mg PO DAILY Qty: 30 5RF Rx Instructions: take with escitalopram 5mg daily to equal 15mg fluticasone propionate [Flonase Allergy Relief] 50 mcg/actuation spray,suspension 2 spray NASAL DAILY Qty: 16 5RF Rx Instructions: administer into each nostril spironolactone 25 mg tablet 25 mg PO DAILY Qty: 30 5RF dextroamphetamine-amphetamine [Adderall XR] 10 mg capsule,extended release 24hr 10 mg PO DAILY Qty: 30 0RF norethindrone (contraceptive) 0.35 mg tablet 0.35 mg PO DAILY Qty: 84 0RF Rx Instructions: patient needs to call to make appointment before further refills Follow-up/Referrals: Allen Landon MD [Physician, Orthopedics] Patricia Terrell NP [Primary Care Provider, Family Practice] Time of Disposition: 15:48
== END 2025-04-01 15:55 | disposition home or self-care (01) ==
PROVIDERS: Emergency Provider Nurse Practitioner; PCP Nurse Practitioner Family
DX: S59.901A Unspecified injury of right elbow, initial encounter (principal); W19.XXXA Unspecified fall, initial encounter; I10 Essential (primary) hypertension; E78.5 Hyperlipidemia, unspecified; K21.9 Gastro-esophageal reflux disease without esophagitis; J45.909 Unspecified asthma, uncomplicated; F90.9 Attention-deficit hyperactivity disorder, unspecified type; F41.8 Other specified anxiety disorders
CPT/HCPCS: 29105; 73080; 99213; A4565; G0463